=== PATIENT | female | born 1950 ===

== ENCOUNTER 2024-10-05 09:50 | Outpatient (AMB) | payer MEDICARE, SELFPAY ==
--- NOTE | 2024-10-05 10:12 | MHC.PC.OV ---
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 Intake Note: establish care Tetryl Blender Operator Required: Yes Tetryl Blender Operator Language: User Experience Designer Name: minh ([id number]) Information Interpreted: non-clinical & clinical Crematory Operator: Present Accompanied by: Daughter Is last menstrual period known: No Post menopausal: Yes Patient : No Allergies Penicillins Allergy (Severe, Verified 10/05/24 10:18) ANGIOEDEMA Medication List - Last Reconciled 10/05/24 by Andrew Weiner MD diltiazem HCl 30 mg PO DAILY donepezil 5 mg PO DAILY ferrous sulfate 325 mg PO DAILY levothyroxine (Levo-T) 50 mcg PO DAILY losartan 25 mg PO DAILY metformin 500 mg PO DAILY simvastatin 40 mg PO BEDTIME Tobacco use date assessed: 10/05/24 Fall risk assessment: 1 Fall in past year Last assessed Fall Risk: 10/05/24 Dental Screening Dental Screen Date: 10/05/24 Did you have a dental visit in the last 12 months?: No Did you have a dental problem in the last 6 months where you did not have access to dental care?: No Was dental information given to patient?: Patient has dentist HPI 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 , Shoulder surgery. SocHx: Lives w/ daughter. [facility] Social History Housing: House Patient Tobacco Use Status: Never used Tobacco e-Cigarette/Vaping Use: Never Used Second Hand Smoke Exposure: No service: No Current occupational status: retired Current occupational exposures/hazards: No Cognitive needs: No Hearing needs: No Vision needs: Yes Questionnaire Thrive Questionnaire I am a: Patient What is your living situation today?: I have a steady place to live Within the past 12 months, did the food you bought not last and you didn't have the money to get more?: Never true Within the past 12 months, did you worry whether your food would run out before you got money to buy more?: Never true Do you have trouble paying for medicines?: No Do you have trouble getting transportation to medical appointments?: I choose not to answer this question Do you have trouble paying your heating and electricity bill?: I choose not to answer this question Do you have trouble taking care of your child, family member or friend?: I choose not to answer this question Do you have trouble with day-to-day activities such as bathing, preparing meals, shopping, managing finances, etc.?: Yes Are you currently unemployed and looking for a job?: I choose not to answer this question Are you interested in more education?: No Please select the resources that you would like help with: Care for elder or disabled Currently or been in a relationship where the following occur: No concerns reported THRIVE Score: 0 AUDIT C Alcohol Use Questionnaire (AUDIT-C) 1. How often do you have a drink containing alcohol?: Never Total Score: 0 NICOLLE-7 AMB Questionnaire NICOLLE-7 Feeling nervous, anxious, or on edge: 0 = Not at all Not being able to stop or control worryin = Not at all Worrying too much about different things: 0 = Not at all Trouble relaxin = Not at all Being so restless that it is hard to sit still: 3 = Nearly every day Becoming easily annoyed or irritable: 1 = Several days Feeling afraid as if something awful might happen: 0 = Not at all Total NICOLLE-7 score (0-4 normal; 5-9 mild; 10-14 moderate; 15-21 severe): 4 Source: Developed by Drs. Bud Oliva, Janie Escalante, Oneal Pendleton and colleagues, with an educational félix from [employer]. Review of Systems Const Denies chills, Denies fatigue, Denies fever(s), Denies headache(s) and Denies weakness ENT Denies dizziness and Denies headache(s) Card Denies chest pain, Denies lightheadedness, Denies dyspnea and Denies other (Palpitations) Resp Denies cough, Denies dyspnea, Denies wheezing and Denies other ( shortness of breath) Musc Denies numbness and Denies tingling Neuro Denies dizziness, Denies headache(s), Denies numbness, Denies tingling, Denies paresthesias and Denies weakness Psych Denies anxiety and Denies depression Endo Denies fatigue Aller/Immun Denies wheezing Physical exam (Primary Care) Currently or been in a relationship where the following occur: No concerns reported Const General: no acute distress and well developed Nutritional Appearance: well nourished Orientation/consciousness: patient oriented x3 [facility] Head: Yes normocephalic and Yes atraumatic Eyes General: appearance normal, both eyes and all related structures Pupils: Equal, round and reactive pupils present EOM: EOMs intact bilaterally Resp Effort & Inspection: normal respiratory effort Auscultation: clear to auscultation bilaterally Cardio Rate: regular rate Rhythm: regular rhythm Heart sounds: S1 normal heart sound present, S2 normal heart sound present, no gallops, no murmurs and no rubs Neuro General: patient oriented x3 and No gait normal Cranial nerves: Yes Equal, round and reactive pupils present Psych Affect: normal affect Coding Level of Care Code New Pt Level 4 (45377) Diagnoses Diabetes type 2 E11.9 Alzheimers disease G30.9; F02.80 Hypertension I10 Chronic kidney disease, stage 3a N18.31 Heart failure, unspecified I50.9 Hypothyroidism E03.9 Hyperlipidemia E78.5 History of left knee replacement Z96.652 Lower extremity weakness R29.898 Laboratory exam ordered as part of routine general medical examination Z00.00 Assessment & Plan Assessment & Plan (1) Diabetes type 2: Code(s): E11.9 - Type 2 diabetes mellitus without complications Plan: A1c?today?is?4.9%?on?metformin?500?mg?daily.??She?is?rather?frail?and?her?goal?should?be?around?6.8-7.1%. Also?has?a?documented?history?of?chronic?renal?failure?and?is?on?metformin. Will?have?her?decrease?metformin?to?250?mg?daily (2) Alzheimers disease: Code(s): G30.9 - Alzheimer's disease, unspecified; F02.80 - Dementia in other diseases classified elsewhere, unspecified severity, without behavioral disturbance, psychotic disturbance, mood disturbance, and anxiety Category: Medical Plan: Patient's?prior?records?known?Alzheimer's?disease.??Her?daughter?says?she?has?never?formally?evaluated?for?this She?requests?a?referral?to?neurology?to?evaluate?dementia - referral?made (3) Hypertension: Code(s): I10 - Essential (primary) hypertension Category: Medical Plan: Blood?pressure?is?controlled.??Goal?is?less?than?40/90 Continue?current?medication (4) Chronic kidney disease, stage 3a: Code(s): N18.31 - Chronic kidney disease, stage 3a Category: Medical Plan: Check?labs As?above,?decreasing?metformin?as?her?A1c?is?rather?low?and?she?has?a?history?renal?disease (5) Heart failure, unspecified: Code(s): I50.9 - Heart failure, unspecified Category: Medical Plan: Check?BNP (6) Hypothyroidism: Code(s): E03.9 - Hypothyroidism, unspecified Category: Medical Plan: Check?thyroid?hormone?levels Will?adjust?levothyroxine?as?needed (7) Hyperlipidemia: Code(s): E78.5 - Hyperlipidemia, unspecified Category: Medical Plan: Check?lipids Continue?simvastatin (8) History of left knee replacement: Code(s): Z96.652 - Presence of left artificial knee joint Category: Surgical Plan: Stable (9) Lower extremity weakness: Code(s): R29.898 - Other symptoms and signs involving the musculoskeletal system Category: Medical Plan: Patient?has?lower?extremity?weakness?and?an?unsteady?gait Will?get?her?a?light-weight?walker She?will?also?benefit?from?physical?therapy-ordered (10) Laboratory exam ordered as part of routine general medical examination: Code(s): Z00.00 - Encounter for general adult medical examination without abnormal findings Category: Medical Plan: Check?labs Orders: Orders Comprehensive [place]. Panel Fast Today Z00.00 - Encounter for general adult medical examination without abnormal findings Microalbumin, Random (w Creat) Today I10 - Essential (primary) hypertension Free T4 (Free Thyroxine) Today E03.9 - Hypothyroidism, unspecified TSH reflex Free T4 Today Z00.00 - Encounter for general adult medical examination without abnormal findings Triiodothyronine T3 Total Today E03.9 - Hypothyroidism, unspecified XR DEXA axial skeleton Today M81.0 - Age-related osteoporosis without current pathological fracture PT Evaluation and Treatment Today R29.898 - Other symptoms and signs involving the musculoskeletal system Complete Blood Count Auto Diff Today Z00.00 - Encounter for general adult medical examination without abnormal findings Lipid Panel Today Z00.00 - Encounter for general adult medical examination without abnormal findings UA and rflx microscopic Today Z00.00 - Encounter for general adult medical examination without abnormal findings Vitamin B12 and Folate Today E53.8 - Deficiency of other specified B group vitamins MM tomosynthesis screening BI Today Z12.31 - Encounter for screening mammogram for malignant neoplasm of breast B Type Natriuretic Peptide Today I50.9 - Heart failure, unspecified Referrals Neurology Referral F03.90 - Unspecified dementia, unspecified severity, without behavioral disturbance, psychotic disturbance, mood disturbance, and anxiety Medications: New walker (Ultra-Light Rollator misc) As directed, 999 days 1 ea 0RF R26.81 - Unsteadiness on feet, R29.898 - Other symptoms and signs involving the musculoskeletal system donepezil 10 mg PO DAILY 90 days 90 tabs 2RF walker (Ultra-Light Rollator misc) As directed, 999 days 1 ea 0RF R26.81 - Unsteadiness on feet, R29.898 - Other symptoms and signs involving the musculoskeletal system
[2024-10-05 10:28] VITALS: BP 131/61; PULSE 62; RESP 16; O2SAT 98; BMI 19.7
== END 2024-10-05 11:03 | disposition home or self-care (01) ==
PROVIDERS: PCP Family Medicine; Visit Provider Family Medicine
DX: I13.0 Hypertensive heart and chronic kidney disease with heart failure and stage 1 through stage 4 chronic kidney disease, or unspecified chronic kidney disease (principal); E11.22 Type 2 diabetes mellitus with diabetic chronic kidney disease; N18.31 Chronic kidney disease, stage 3a; G30.9 Alzheimer's disease, unspecified; F02.80 Dementia in other diseases classified elsewhere, unspecified severity, without behavioral disturbance, psychotic disturbance, mood disturbance, and anxiety; I50.9 Heart failure, unspecified; E03.9 Hypothyroidism, unspecified; E78.5 Hyperlipidemia, unspecified; Z96.652 Presence of left artificial knee joint; R29.898 Other symptoms and signs involving the musculoskeletal system

== ENCOUNTER → 2024-10-05 09:50 | Outpatient (BNVA) | payer MEDICARE, SELFPAY | PROVIDERS: PCP Family Medicine; Visit Provider Family Medicine | DX: G30.9 Alzheimer's disease, unspecified (principal); F02.80 Dementia in other diseases classified elsewhere, unspecified severity, without behavioral disturbance, psychotic disturbance, mood disturbance, and anxiety; I13.0 Hypertensive heart and chronic kidney disease with heart failure and stage 1 through stage 4 chronic kidney disease, or unspecified chronic kidney disease; E11.22 Type 2 diabetes mellitus with diabetic chronic kidney disease; N18.31 Chronic kidney disease, stage 3a; I50.9 Heart failure, unspecified; E03.9 Hypothyroidism, unspecified; E78.5 Hyperlipidemia, unspecified; R29.898 Other symptoms and signs involving the musculoskeletal system; Z96.652 Presence of left artificial knee joint | CPT/HCPCS: 99202 ==

== ENCOUNTER 2024-10-21 11:11 | Outpatient (REF) | payer MEDICARE, SELFPAY | END 2024-10-21 11:12 | disposition home or self-care (01) | LOC: HO.LAB 11:11 | PROVIDERS: PCP Family Medicine; Visit Provider Psychiatry & Neurology Neurology | DX: Z13.89 Encounter for screening for other disorder (principal) ==

== ENCOUNTER 2024-10-28 14:03 | Outpatient (REF) | payer MEDICARE, SELFPAY ==
[2024-10-28 14:27] LABS: MANUAL DIFF FLAG NO
[2024-10-28 15:46] LABS: Basophils Absolute Auto 0.1 X10*3/uL (0.0-0.2); Basophils Percent Auto 0.6 % (0-2); Eosinophils Absolute Auto 0.1 X10*3/uL (0.0-0.4); Eosinophils Percent Auto 1.5 % (0-4); Hematocrit 35.9 % (37.0-47.0); Hemoglobin 12.2 g/dl (12.0-16.0); Imm Gran Abs Auto 0.01 X10*3/uL (0.00-0.03); Imm Gran Pct Auto 0.1 % (0.0-0.4); Lymphocytes Absolute Auto 2.3 X10*3/uL (1.2-4.9); Lymphocytes Percent Auto 27.9 % (20-40); Mean Corpuscular Volume 88.2 fL (80.0-98.0); Mean Platelet Volume 10.5 fL (9.4-12.3); Monocytes Absolute Auto 0.4 X10*3/uL (0.1-1.2); Monocytes Percent Auto 4.7 % (2-11); Neutrophils Absolute Auto 5.4 x10*3/uL (2.0-8.3); Neutrophils Percent Auto 65.2 % (45-73); Platelet Count 349 X10*3/uL (160-400); Red Blood Count 4.07 X10*6/uL (4.20-5.50); Red Cell Distribution Width 13.7 % (11.0-16.0); White Blood Count 8.3 X10*3/uL (4.8-10.8)
[2024-10-28 16:21] LABS: Anion Gap 12 (12-20); Blood Urea Nitrogen 25 mg/dL (9-16); Calcium 9.6 mg/dL (8.4-10.2); Carbon Dioxide 27 mmol/L (22-29); Chloride 111 mmol/L (96-108); Estimated Glomerular Filt Rate > 60; Glucose Random 91 mg/dL (60-115); Potassium 3.4 mmol/L (3.3-5.1); Sodium 147 mmol/L (135-145)
[2024-10-28 16:37] LABS: Thyroid Stimulating Hormone 1.36 uIU/mL (0.32-4.0)
[2024-10-28 16:48] LABS: Folate 4.2 ng/mL (> or = 4.0); Vitamin B12 282 pg/mL (200-900)
== END 2024-10-28 14:04 | disposition home or self-care (01) ==
LOC: HO.LAB 14:03
PROVIDERS: PCP Family Medicine; Visit Provider Psychiatry & Neurology Neurology
DX: G30.9 Alzheimer's disease, unspecified (principal)
CPT/HCPCS: 36415; 80048; 82607; 82746; 84443; 85025

== ENCOUNTER 2024-11-05 11:00 | Outpatient (AMB) | payer MEDICARE, SELFPAY ==
--- NOTE | 2024-11-05 11:10 | A.OFFPC_ITS ---
Vital Signs 11/05/24 11:21 Height 4 ft 11 in Weight 101 lb 4 oz BMI 20.4 BP 120/60 Blood Pressure Location Lt brachial Position Sitting Respiration 14 Pulse 67 Pulse Source Pulse Oximeter Pulse Oximetry (%) 97 Oxygen Delivery Method Room Air Intake Visit Reasons: CPE with f/u labs and health maint. 30 mins Intake Note: CPE lab results Category Director Required: Yes Category Director Language: Milk Tanker Driver Name: carmine [id number] Information Interpreted: non-clinical & clinical Sales Coordinator: Present Accompanied by: Daughter Is last menstrual period known: No Post menopausal: Yes Patient : No Followed by:: juan Allergies Penicillins Allergy (Severe, Verified 11/05/24 11:16) ANGIOEDEMA Tobacco use date assessed: 11/05/24 Fall risk assessment: 1 Fall in past year Last assessed Fall Risk: 11/05/24 Dental Screening Dental Screen Date: 11/05/24 Did you have a dental visit in the last 12 months?: No Did you have a dental problem in the last 6 months where you did not have access to dental care?: No Was dental information given to patient?: Patient has dentist HPI CPE with f/u labs and health maint. 30 mins HPI Details 74 y/o female presents for an extended e xam with f/u labs and health maintenance. Labs drawn 10/28/24. Reviewed labs with pt. No lipid panel to review. RBC mildly low at 4.07, Hct 35.9. Had seen Dr. Benson Neurology for progressive dementia and personality changes. She is on donepizil. Has not done physical therapy yet for LE weakness. A1c 4.8%. She is on metformin 500mg daily. HPI Comments History of Present Illness Details Documentation assistance for Andrew Weiner MD, was provided by Shahbaz Syed, Painter Helper on 11/05/2024 at 11:48 AM EST. I, Dr. Weiner, have read, observed, and verified documentation. [facility] Social History Housing: House Patient Tobacco Use Status: Never used Tobacco e-Cigarette/Vaping Use: Never Used Second Hand Smoke Exposure: No service: No Current occupational status: retired Current occupational exposures/hazards: No Cognitive needs: No Hearing needs: No Vision needs: Yes Questionnaire PHQ-9 Over the last 2 weeks, how often have you been bothered by any of the following problems? 52965 - PHQ-9 Billing: Patient declined-do not bill Source: Developed by Drs. Bud Oliva, Janie Escalante, Oneal Pendletno and colleagues, with an educational félix from [employer]. Thrive Questionnaire Date Thrive assessed: 11/05/24 I am a: Patient What is your living situation today?: I have a steady place to live Within the past 12 months, did the food you bought not last and you didn't have the money to get more?: Never true Within the past 12 months, did you worry whether your food would run out before you got money to buy more?: Never true Do you have trouble paying for medicines?: No Do you have trouble getting transportation to medical appointments?: No Do you have trouble paying your heating and electricity bill?: No Do you have trouble taking care of your child, family member or friend?: Yes Do you have trouble with day-to-day activities such as bathing, preparing meals, shopping, managing finances, etc.?: Yes Are you currently unemployed and looking for a job?: No Are you interested in more education?: No Please select the resources that you would like help with: None Currently or been in a relationship where the following occur: No concerns reported THRIVE Score: 0 AUDIT C Alcohol Use Questionnaire (AUDIT-C) 1. How often do you have a drink containing alcohol?: Never 3. How often do you have six or more drinks on one occasion?: Never Total Score: 0 Review of Systems Const Denies chills, Denies fatigue, Denies fever(s), Denies headache(s) and Denies weakness Eyes Denies change in vision ENT Denies dizziness, Denies headache(s), Denies hearing loss, Denies nasal congestion, Denies sinus pain, Denies sinus pressure and Denies sore throat Card Denies chest pain, Denies lightheadedness, Denies dyspnea and Denies other (palpitations) Resp Denies cough, Denies dyspnea and Denies wheezing GI Denies abdominal pain, Denies melena, Denies hematochezia, Denies change in bowel habits, Denies dyspepsia and Denies nausea Denies hematuria and Denies dysuria Musc Denies abnormal gait, Denies myalgias, Denies arthralgias, Denies numbness and Denies tingling Skin/Breast Denies rash, Denies unusual bruising and Denies wounds Neuro Denies abnormal gait, Denies dizziness, Denies headache(s), Denies memory loss, Denies numbness, Denies Sensory deficit (Neuro), Denies tingling and Denies weakness Psych Denies anxiety, Denies depression and Denies memory loss Endo Denies cold intolerance, Denies fatigue, Denies heat intolerance, Denies polydipsia and Denies polyuria Huber/Lymph Denies easy bleeding and Denies easy bruising Aller/Immun Denies wheezing Physical exam (Primary Care) Vital Signs: Last Vital Signs Pulse 67 11/05/24 11:21 Resp 14 11/05/24 11:21 BP 120/60 11/05/24 11:21 Pulse Ox 97 11/05/24 11:21 Oxygen Delivery Method Room Air 11/05/24 11:21 BMI result Body Mass Index 20.4 Tobacco/Smoking Status: Tobacco use Status Tobacco use date assessed 11/05/24 11/05/24 11:35 Patient Tobacco Use Status Never used Tobacco 11/05/24 11:12 e-Cigarette/Vaping Use Never Used 11/05/24 11:12 Thrive Assessment: Date of Thrive Assessment Date Thrive assessed 11/05/24 11/05/24 11:12 Currently or been in a relationship where the following occur: No concerns reported Const General: no acute distress, well developed, alert and awake Nutritional Appearance: well nourished [facility] Head: Yes normocephalic and Yes atraumatic Ears: hearing grossly normal bilaterally and TM's normal bilaterally General nose exam: Normal external nose present and Normal nares present Mouth: Normal oral and palatal mucosa present and moist mucous membranes Teeth and gingiva: dentition normal Throat: Yes posterior oropharynx normal Eyes General: appearance normal, both eyes and all related structures Pupils: Equal, round and reactive pupils present and Pupil accommodation reflex normal EOM: EOMs intact bilaterally Neck Neck: Yes normal visual inspection, Yes no lymphadenopathy and Yes trachea midline Thyroid: Thyroid normal Carotids: no bruits Lymphatic: no lymphadenopathy noted Chest Chest palpation & inspection: normal inspection of the chest Resp Effort & Inspection: normal respiratory effort Auscultation: clear to auscultation bilaterally Cardio Rate: regular rate Rhythm: regular rhythm Heart sounds: S1 normal heart sound present, S2 normal heart sound present, no gallops, no murmurs and no rubs Bruits: no abdominal aortic bruits and no carotid bruits GI Palpation (GI): No Abdominal aortic bruit present, Soft to palpation, nontender, No hepatosplenomegaly present and No Rebound tenderness present Auscultation: normal bowel sounds General: Yes no CVA tenderness Back/Spine/Pelvis Back: no CVA tenderness Cervical Spine: cervical ROM normal and No Cervical spine tenderness Thoracic/Lumbar Spine: thoraco-lumbar ROM normal, No pain with thoraco-lumbar ROM, No thoracic spinal tenderness and No lumbar spinal tenderness Skin Lesions: no lesions Rashes: no rashes Trauma: no lacerations or abrasions Wounds: no wounds Nails: normal Neuro Cranial nerves: Yes Equal, round and reactive pupils present Cognition (Neuro): normal cognition Gait exam (Neuro): gait abnormal Motor exam (neuro): 5/5 motor strength present throughout Sensory Exam: No Sensory deficit (Neuro) Deep tendon reflexes (DTR's): Right patellar reflex intensity grade: 2+ and Left patellar reflex intensity grade: 2+ Extrem General: Yes normal to inspection and No edema Psych Appearance: grossly normal Affect: normal affect Attitude: cooperative Thought process: abnormal Results AMB Hemoglobin A1c AMB Hemoglobin A1c 4.8 % Last Edit by Maria Luisa Macario CMA on 11/05/24 12:00 Results Reviewed Results Reviewed: Laboratory Last Values Hgb A1c (Clinic) 4.8 % (4.0-6.0) 11/05/24 11:53 Coding Level of Care Code Est Pt Level 4 (86102) Diagnoses Alzheimers disease G30.9; F02.80 Lower extremity weakness R29.898 Diabetes type 2 E11.9 Hypertension I10 Hyperlipidemia E78.5 Hypothyroidism E03.9 Mild anemia D64.9 Adult general medical exam Z00.00 Assessment & Plan Assessment & Plan (1) Alzheimers disease: Code(s): G30.9 - Alzheimer's disease, unspecified; F02.80 - Dementia in other diseases classified elsewhere, unspecified severity, without behavioral disturbance, psychotic disturbance, mood disturbance, and anxiety Category: Medical Plan: Alzheimer's?dementia Patient?is?mental?status?exam?is?are?rather?pronounced.??MMSE?less?than?20/30. [employer]ie[employer] 0 Patient?lives?with?daughter.??Recommended?she?reorient?patient?frequently She?is?on?donepezil?and?can?continue?this?if?she?is?having?no?adverse?effects Referred?to?nurse?navigator?to?evaluate?for?serv ices?including?greater?[place]?elder?care?and will benefit from COMMANDING OFFICER GARAGE Referred?to?[facility]?for?physical?therapy?due?to?deconditioning?from?Alzheimer's?and? she?has?an?unsteady?gait. Also?for?medication?m anagement?and?for?home?safety?evaluation. (2) Lower extremity weakness: Code(s): R29.898 - Other symptoms and signs involving the musculoskeletal system Category: Medical Plan: If?her?a?script?for?a?Rollator?walker Physical?therapy?at?home?by?[facility]?as?above (3) Diabetes type 2: Code(s): E11.9 - Type 2 diabetes mellitus without complications Plan: A1c?4.8%?on?metformin?250?mg?daily. She?is?on?no?other?medications?for?diabetes Will?continue?to?monitor No?changes?to?regimen?today. (4) Hypertension: Code(s): I10 - Essential (primary) hypertension Category: Medical Plan: Blood?pressure?is?controlled. Goal?is?less?than?40/90 Continue?current?medication (5) Hyperlipidemia: Code(s): E78.5 - Hyperlipidemia, unspecified Category: Medical Plan: History?of?hyperlipidemia. Had?ordered?lab?work?but?this?has?not?been?drawn?yet. Will?follow-up?after?she?has?her?labs?drawn (6) Hypothyroidism: Code(s): E03.9 - Hypothyroidism, unspecified Category: Medical Plan: TSH?was?within?normal?range (7) Mild anemia: Code(s): D64.9 - Anemia, unspecified Category: Medical Plan: Mild Will?monitor (8) Adult general medical exam: Code(s): Z00.00 - Encounter for general adult medical examination without abnormal findings Category: Medical Plan: 74-year-old?female?with?moderately?severe?Alzheimer's?dementia Physical?exam?today?is?unremarkable?except?deficits?in?memory?and?cognition and?some?lower?extremity?weakness?with?unsteady?gait. Orders: Orders AMB Hemoglobin A1c Today Z13.9 - Encounter for screening, unspecified AMB Hemoglobin A1c 10/05/24 Z13.9 - Encounter for screening, unspecified Referrals Nurse Navigator Referral F02.80 - Dementia in other diseases classified elsewhere, unspecified severity, without behavioral disturbance, psychotic disturbance, mood disturbance, and anxiety, G30.9 - Alzheimer's disease, unspecified [facility] Referral F02.80 - Dementia in other diseases classified elsewhere, unspecified severity, without behavioral disturbance, psychotic disturbance, mood disturbance, and anxiety, G30.9 - Alzheimer's disease, unspecified, R26.81 - Unsteadiness on feet, R29.898 - Other symptoms and signs involving the musculoskeletal system Medications: Refilled walker (Ultra-Light Rollator misc) As directed, 999 days 1 ea 0RF R26.81 - Unsteadiness on feet, R29.898 - Other symptoms and signs involving the musculoskeletal system walker (Ultra-Light Rollator misc) As directed, 999 days 1 ea 0RF R26.81 - Unsteadiness on feet, R29.898 - Other symptoms and signs involving the musculoskeletal system
[2024-11-05 11:21] VITALS: BP 120/60; PULSE 67; RESP 14; O2SAT 97; BMI 20.4
== END 2024-11-05 12:16 | disposition home or self-care (01) ==
PROVIDERS: PCP Family Medicine; Visit Provider Family Medicine
DX: G30.9 Alzheimer's disease, unspecified (principal); F02.80 Dementia in other diseases classified elsewhere, unspecified severity, without behavioral disturbance, psychotic disturbance, mood disturbance, and anxiety; R29.898 Other symptoms and signs involving the musculoskeletal system; E11.9 Type 2 diabetes mellitus without complications; I10 Essential (primary) hypertension; E78.5 Hyperlipidemia, unspecified; E03.9 Hypothyroidism, unspecified; D64.9 Anemia, unspecified; Z00.00 Encounter for general adult medical examination without abnormal findings; Z13.9 Encounter for screening, unspecified

== ENCOUNTER → 2024-11-05 11:00 | Outpatient (BNVA) | payer MEDICARE, SELFPAY | PROVIDERS: PCP Family Medicine; Visit Provider Family Medicine | DX: Z00.00 Encounter for general adult medical examination without abnormal findings (principal); G30.9 Alzheimer's disease, unspecified; F02.80 Dementia in other diseases classified elsewhere, unspecified severity, without behavioral disturbance, psychotic disturbance, mood disturbance, and anxiety; R29.898 Other symptoms and signs involving the musculoskeletal system; R26.81 Unsteadiness on feet; E11.9 Type 2 diabetes mellitus without complications; I10 Essential (primary) hypertension; E78.5 Hyperlipidemia, unspecified; E03.9 Hypothyroidism, unspecified; D64.9 Anemia, unspecified | CPT/HCPCS: 83036; 99212 ==

== ENCOUNTER 2024-11-11 14:02 | Outpatient (REF) | payer MEDICARE, SELFPAY ==
--- NOTE | ~2024-11-11 | CT_ITS ---
CLINICAL HISTORY: ALZHEIMERS DEMENTIA CT head without contrast Comparison: None Findings: No intra-axial mass, midline shift, hydrocephalus, or acute hemorrhage. There is moderate diffuse atrophy and white matter change likely related to chronic microvascular ischemia. There is no sinus or mastoid fluid. The orbits are within normal limits. No skull fracture. IMPRESSION: 1. No acute intracranial findings This document has been electronically signed by: Ervin Rodriguez MD on 11/13/2024 07:01:21
== END 2024-11-11 14:03 | disposition home or self-care (01) ==
LOC: HO.CT 14:02
PROVIDERS: PCP Family Medicine; Visit Provider Family Medicine
DX: G30.9 Alzheimer's disease, unspecified (principal); F02.80 Dementia in other diseases classified elsewhere, unspecified severity, without behavioral disturbance, psychotic disturbance, mood disturbance, and anxiety
CPT/HCPCS: 70450

== ENCOUNTER → 2024-11-11 14:07 | Outpatient (BNV) | payer MEDICARE, SELFPAY | PROVIDERS: PCP Family Medicine; Visit Provider Specialist | DX: G30.9 Alzheimer's disease, unspecified (principal); F02.80 Dementia in other diseases classified elsewhere, unspecified severity, without behavioral disturbance, psychotic disturbance, mood disturbance, and anxiety | CPT/HCPCS: 70450 ==

== ENCOUNTER 2024-12-15 12:49 | Outpatient (REF) | payer MEDICARE, SELFPAY ==
--- NOTE | ~2024-12-15 | MM_ITS ---
EXAMINATION: DXA BONE DENSITY AXIAL HISTORY: Estrogen deficiency TECHNIQUE: Nomi Dual energy absorptiometry (DEXA) of the lumbar spine, total left hip, and femoral neck was performed. COMPARISON: There are no prior studies for comparison. FINDINGS: The bone mineral density of the lumbar spine is 1.075 with a T-score of -0.9, and a Z-score of 1.5. The bone mineral density of the left total hip is 0.651 with a T-score of -2.8, and a Z-score of -0.6. The bone mineral density of the left femoral neck is 0.593 with a T-score of -3.2, and a Z-score of -0.8. MM/XR DEXA axial skeleton IMPRESSION: Based on bone mineral density, and according to World Health Organization (WHO) criteria, the diagnosis is consistent with osteoporosis. All bone density values are in grams per centimeter squared (g/cm2). Statistically, 68% of repeat scans fall within 1 SD (+/- 0.010 g/cm2 for AP spine L1-L4) and 1 SD (+/- 0.012 g/cm2 for femur total) FRAX is a trademark of the [employer]'s [employer] Metabolic Bone Disease, a World Health Organization (WHO) Collaborating Center. Electronically signed by: Bud Pineda MD 12/15/2024 02:37 PM [facility] [place]
--- OUTSIDE RECORDS SUMMARY | 2024-12-15 14:13 | XMS_ITS | Clinical Summary ---
Author Organization [employer] Address [address] [place] [address] Care Team Providers Care Necktie Turner Name Role Phone Unavailable Primary Care Provider Unavailabl e Social History Tobacco Use Types Packs/Day Years Used Date Smoking Tobacco: Never Assessed Comments Unknown Sex and Gender Information Value Date Recorded Sex Assigned at Not on file Legal Sex Female 2:22 PM EDT Gender Identity Not on file Sexual Orientation Not on file Plan of Treatment Health Maintenance Due Date Last Done Comments Depression Screening 1950 SDOH Screening 1950 Alcohol/Substance Use Screening 1960 Tobacco Screening 1960 Hepatitis C Screening 1966 DTaP/Tdap/Td Vaccines (1 - Tdap) 1967 Pneumococcal Vaccine: 50+ Ye ars (1 of 1 - PCV) 1998 Zoster Vaccines (1 of 2) 1998 RSV Patients and Pa tients Aged 60 years or older (1 - 1-dose 75+ series) 2023 COVID-19 Vaccine ( - 2023-2 5 season) 2024 Influenza Vaccine (#1) 2024 HIB Vaccines Aged Out No longer eligi ble based on patient's age to complete this topic HPV Vaccines Aged Out No longer eligi ble based on patient's age to complete this topic Hepatitis A Vaccines Aged Out No long er eligible based on patient's age to complete this topic Hepatitis B Vaccines Aged Out No long er eligible based on patient's age to complete this topic IPV Vaccines Aged Out No longer eligi ble based on patient's age to complete this topic Meningococcal Vaccine Aged Out No rosamaria bina eligible based on patient's age to complete this topic RSV under 20 months Aged Out No longe r eligible based on patient's age to complete this topic Rotavirus Vaccines Aged Out No longer eligible based on patient's age to complete this topic Insurance [place] [phone]
== END 2024-12-15 12:50 | disposition home or self-care (01) ==
LOC: HO.MAMMO 12:49
PROVIDERS: PCP Family Medicine; Visit Provider Family Medicine
DX: Z12.31 Encounter for screening mammogram for malignant neoplasm of breast (principal); M81.0 Age-related osteoporosis without current pathological fracture
CPT/HCPCS: 77063; 77067; 77080

== ENCOUNTER → 2024-12-15 12:59 | Outpatient (BNV) | payer MEDICARE, SELFPAY | PROVIDERS: PCP Family Medicine; Visit Provider Radiology Diagnostic Radiology | DX: M81.0 Age-related osteoporosis without current pathological fracture (principal) | CPT/HCPCS: 77080 ==

== ENCOUNTER 2025-08-10 09:44 | Emergency (ER) | payer MEDICARE, MEDICAID, SELFPAY ==
--- NOTE | ~2025-08-10 | CT_ITS ---
CLINICAL HISTORY: L labia majora with areas of necrosis R O gangrene CT abdomen and pelvis with contrast Comparison: None provided Findings: LIMITED CHEST: Partially visualized 5 mm nodule at the left base. Follow-up per Fleischner criteria. LIVER: No focal liver lesion. BILIARY: No gallbladder wall thickening, radiopaque stone, or ductal dilatation. PANCREAS: No mass or ductal dilatation. SPLEEN: No splenomegaly. KIDNEYS: Left-sided nephrolithiasis, largest measuring 4 mm in the left lower pole. No hydronephrosis. Small hypoattenuating lesions, too small to characterize however may represent cysts. ADRENALS: No nodule. VASCULAR: No aneurysm. RETROPERITONEUM: No lymphadenopathy or mass. BOWEL/MESENTERY: No evidence of obstruction. No free fluid or air. Moderate colonic stool burden. ABDOMINAL WALL: No mass or significant abnormality. URINARY BLADDER: No focal wall thickening. PELVIC NODES: No pelvic lymphadenopathy. PELVIC ORGANS: Hysterectomy. There is a 7.9 x 2.9 x 7.1 cm enhancing fluid collection along the left labia majora extending into the inferior aspect of the vaginal canal. There is small internal soft tissue gas. BONES: No acute fracture. OTHER: Asymmetric atrophy of the right hip musculature. IMPRESSION: Large soft tissue abscess of the left labia majora extending into the inferior aspect of the vaginal canal. Internal pockets of gas, suspicious for gangrenous process. This document has been electronically signed by: Ramila Antony MD on 08/10/2025 19:23:48
[2025-08-10 09:49] VITALS: BP 125/58; PULSE 81; RESP 16; TEMP 36.7; O2SAT 97; BMI 17.8
[2025-08-10 12:34] VITALS: BP 116/40; PULSE 74; RESP 18; O2SAT 98
--- NOTE | 2025-08-10 12:54 | ED.FEMALEGU ---
HPI - Female Genitourinary General Chief complaint: Urogenital-Female Stated complaint: Ovarian cyst? Time Seen by Provider: 08/10/25 12:39 Source: family (Daughter at bedside), RN notes reviewed, old records reviewed and assessment counselor Mode of arrival: ambulatory Limitations: language barrier ([place]ese-speaking) and altered mental status (Severe dementia) History of Present Illness ED Provider: JEAN CLAUDE Aaron HPI Narrative: 75 year old canadian speaking female accompanied by canadian speaking daughter, with medical history of HTN, HLD, hypothyroidism, CKD stage III, Alzheimer's disease, presents to the ED with her daughter who is her caregiver due to concerns of a growth on the labia majora. Daughter states she just noticed this growth within the last week, with some serosanguineous fluid on the beds sheets yesterday making the daughter more concerned. Daughter denies any fever, or recent illnesses. Daughter is unsure of how long this area has been necrotic. Related Data Previous Rx's ?Medication ?Instructions ?Recorded donepezil 10 mg tablet 10 mg PO DAILY 90 days #90 tabs 10/05/24 walker (Ultra-Light Rollator misc) #1 ea 11/05/24 diltiazem HCl 30 mg tablet 30 mg PO DAILY 90 days #90 tabs 12/05/24 ferrous sulfate 325 mg (65 mg 325 mg PO DAILY 90 days #90 tabs 12/05/24 iron) tablet levothyroxine 50 mcg tablet 50 mcg PO DAILY 90 days #90 tabs 12/05/24 (Levo-T) losartan 25 mg tablet 25 mg PO DAILY 90 days #90 tabs 12/05/24 metformin 500 mg tablet 500 mg PO DAILY 90 days #90 tabs 12/05/24 atorvastatin 40 mg tablet 40 mg PO DAILY 90 days #90 tabs 12/16/24 Allergies Allergy/AdvReac Type Severity Reaction Status Date / Time Penicillins Allergy Severe ANGIOEDEMA Verified 08/10/25 09:55 Review of Systems Review of Systems: CONST: Negative for fever, body aches and chills. HENT: Negative for neck pain/stiffness, headache, congestion, sore throat, swelling. EYES: Negative for discharge/pain or vision changes. RESP: Negative for cough/hemoptysis and shortness of breath. CV: Negative chest pain, difficulty breathing, palpitations. ABD: Negative pain, nausea, vomiting. : Negative increase frequency, dysuria, blood in urine or stool. POS hardened lesion of L labia majora MUSC: Negative for muscle aches, edema. SKIN: Negative rash, lesions/sores. NEURO: Negative headache, dizziness, weakness. Yes all other systems are reviewed and are negative [facility] Social History Social History Housing: House Patient Tobacco Use Status: Never used Tobacco e-Cigarette/Vaping Use: Never Used Second Hand Smoke Exposure: No service: No Current occupational status: retired Current occupational exposures/hazards: No Cognitive needs: No Hearing needs: No Vision needs: Yes Physical Exam Vital Signs: Vital Signs: Last Vital Signs Temp 97.6 F 08/11/25 01:04 Pulse 67 08/11/25 01:04 Resp 14 08/11/25 01:04 BP 117/43 L 08/11/25 01:04 Pulse Ox 99 08/11/25 01:04 O2 Del Method Room Air 08/11/25 01:04 BMI result Body Mass Index 17.8 GENERAL APPEARANCE: ?AxO to self only no acute distress. HEENT: ?NC, AT. MMM. EOMI, clear conjunctiva, oropharynx clear. NECK: ?Supple without lymphadenopathy.? No stiffness or restricted ROM. HEART:? Normal rate and regular rhythm, normal S1/S2, no m/r/g LUNGS:? CTAB, moving air well. No crackles or wheezes are heard. ABDOMEN: ?Soft, nontender, nondistended : L labia majora is indurated, with erythema and edema, labia minora with areas of necrotic tissue and purulence BACK: No CVAT, no obvious deformity. EXTREMITIES: ?Without cyanosis, clubbing or edema. NEUROLOGICAL: ?Grossly nonfocal. Alert and oriented, moving all 4 extremities. Skin: ?Warm and dry without any rash. Medications Administered Discontinued Medications Generic Name Dose Route Start Last Admin Trade Name Freq PRN Reason Stop Dose Admin Cefepime HCl 2 gm in 50 mls @ 100 mls/hr 08/10/25 14:38 08/10/25 15:56 Maxipime IV 08/10/25 15:07 Infused ONCE ONE Infusion Metronidazole 500 mg in 100 mls @ 100 mls/hr 08/10/25 14:38 08/10/25 17:15 Flagyl IV 08/10/25 15:37 Infused ONCE ONE Infusion Lactated Ringer's 1,000 mls @ 999 mls/hr 08/10/25 16:30 08/10/25 18:21 Lr IV 08/10/25 17:30 Infused .Q1H1M ONE Infusion Clindamycin Phosphate 600 mg in 50 mls @ 100 mls/hr 08/10/25 19:47 08/10/25 23:49 Cleocin IV 08/10/25 20:16 Infused ONCE ONE Infusion Cefepime HCl 2 gm in 50 mls @ 100 mls/hr 08/10/25 22:04 08/10/25 23:49 Maxipime IV 08/10/25 22:33 Infused ONCE ONE Infusion Iohexol 100 ml 08/10/25 18:35 08/10/25 18:36 Iohexol 350 Mg/Ml 100 Ml Infus..Btl IV 08/10/25 18:36 85 ml ONCE ONE Administration Medical Decision Making Medical Decision Making MDM Narrative: 75 year old canadian speaking female accompanied by canadian speaking daughter, with medical history of HTN, HLD, hypothyroidism, CKD stage III, Alzheimer's disease, presents to the ED with her daughter who is her caregiver due to concerns of a growth on the labia majora. Daughter states she just noticed this growth within the last week, with some serosanguineous fluid on the beds sheets yesterday making the daughter more concerned. VS on initial observation-BP 125/58, pulse rate of 81, respiratory rate of 16, afebrile with oral temp of 98?, O2 saturation 97% on room air. Physical exam reveals L labia majora is indurated, with erythema and edema, labia minora with areas of necrotic tissue and purulence. Plan: labs, UA, CT abdomen pelvis Labs reveal leukocytosis of 11.5 with a left shift of 83.2, normocytic anemia with a hemoglobin of 8.9, and hematocrit of 27.4, lactic acid WNL at 1.3, no electrolyte abnormality. UA reveals 1+ urine protein, 3+ urine blood, 3+ leukocyte esterase, >20 RBC, >50WBC, 6-10 Squamous epithelial cells, 4+ bacteria, 6-10 hyaline casts. Patient medicated with IV fluids, IV cefepime and metronidazole due to penicillin allergy (zosyn was considered). Awaiting CT abdomen pelvis for further evaluation as there is no OB coverage in house today and patient will likely need to be transfered for care as this lesion looks to be possibly cancerous. Patient has been signed out to my colleague Dr. Rodriguez who will resume care of the patient. Patient and her daughter are aware and in agreement of the plan. Time: 19:49 Date: 08/10/25 attending note: Timmy Rodriguez MD 75 year old canadian speaking female accompanied by canadian speaking daughter, with medical history of HTN, HLD, hypothyroidism, CKD stage III, Alzheimer's disease, presents to the ED with her daughter who is her caregiver due to concerns of a growth on the labia majora 1st noted 1 week prior. The daughter states that yesterday she noticed a ?hard crust at the lip of the vagina that looked discolored/dark?. According to to the daughter, the patient was at her baseline and had no complaints. Patient did not have any fever, chills, nausea, vomiting or diarrhea. Physical exam: The left labia majora is swollen, erythematous, tender to touch, there is an area of necrosis on the inner surface, there is a foul odor to the area Medical decision making: My independent interpretation patient's laboratory evaluation is as follows: WBC was elevated 11,500 with 83 neutrophils 9 lymphocytes. Normocytic anemia with an H&H of 8.9 and 27.4 with a normal platelet count of 282,000. BUN was elevated 27 with a normal creatinine of 0.84. Lactic acid was normal 1.3. Urinalysis was positive for protein, blood, leukocyte esterase. Microscopic revealed greater than 20 RBCs, greater than 20 WBCs and 4+ bacteria. I was concerned that the patient may have a malignancy versus cellulitis with necrosis. Since we did not have OBGYN coverage therefore the patient needed to be transferred. Physician apartment assistant manager Luna Aaron present the patient to [facility] transfer line, however they were closed due to lack of capacity. Patient's case was presented to the [facility] transfer line and they requested CT of the abdomen pelvis to further evaluate the lesion/cellulitis. At the end of the physician's apartment assistant manager shift, I took over further management of the patient's care. CT scan radiology impression was as follows: Large soft tissue abscess of the left labia majora extending into the inferior aspect of the vaginal canal. Internal pockets of gas, suspicious . The patient was treated earlier with cefepime 2 g IV and metronidazole 500 mg IV. Given the finding of pockets of gas, I ordered clindamycin 600 mg IV. I did discuss the patient's presentation with the gynecology oncologist, who was covering at [facility] and she felt that the patient should be an ED to ED transfer and she will consult on the patient. The accepting ED physician is Dr. Lawler. The patient did receive a dose of cefepime 2 g proximally 8 hours prior therefore I ordered a 2nd dose of cefepime 2 g IV. The patient will be transferred by [facility] ambulance. The patient's daughter is aware of the transfer and agrees with the transfer. I, Dr. Timmy Rodriguez, personally evaluated the patient. I reviewed the physician apartment assistant manager, Luna Aaron's documentation and I was available to supervise the management of the patient. I agree with her treatment and plan. My note reflects my personal findings on my history and exam. Differential Diagnosis Differential Diagnoses: The differential diagnosis associated with the presentation includes Mony's gangrene Necrotizing fasciitis Cancerous lesion Electrolyte abnormality Admission/Observation Consideration of admission/observation: Escalation of care including admission/observation considered Lab Data MDM Lab Attestation statement: I reviewed the patient's lab results. 08/10/25 14:42 08/10/25 14:42 Labs: Lab Results 08/10/25 08/10/25 Range/Units 14:42 14:45 WBC 11.5 H (4.8-10.8) X10*3/uL RBC 3.15 L D (4.20-5.50) X10*6/uL Hgb 8.9 L D (12.0-16.0) g/dl Hct 27.4 L D (37.0-47.0) % MCV 87.0 (80.0-98.0) fL MCH 28.3 (27.0-33.0) pg MCHC 32.5 (31.0-35.0) g/dl RDW 13.4 (11.0-16.0) % Plt Count 282 (160-400) X10*3/uL MPV 9.5 (9.4-12.3) fL Immature Gran % (Auto) 0.3 (0.0-0.4) % Neut % (Auto) 83.2 H (45-73) % Lymph % (Auto) 9.5 L (20-40) % [place] % (Auto) 4.6 (2-11) % Eos % (Auto) 2.1 (0-4) % Baso % (Auto) 0.3 (0-2) % Lymph # (Auto) 1.1 L (1.2-4.9) X10*3/uL [place] # (Auto) 0.5 (0.1-1.2) X10*3/uL Eos # (Auto) 0.2 (0.0-0.4) X10*3/uL Baso # (Auto) 0.0 (0.0-0.2) X10*3/uL Abs Immat Gran (auto) 0.04 H (0.00-0.03) X10*3/uL Absolute Neuts (auto) 9.6 H (2.0-8.3) x10*3/uL Absolute Nucleated RBC 0.000 (0.0-0.012) X10*3/uL Nucleated RBC % (auto) 0.0 (0.0-0.2) /100WBC Sodium 144 (135-145) mmol/L Potassium 3.9 (3.3-5.1) mmol/L Chloride 110 H (96-108) mmol/L Carbon Dioxide 28 (22-29) mmol/L Anion Gap 10 L (12-20) BUN 27 H (9-16) mg/dL Creatinine 0.84 (0.5-1.4) mg/dL Estim Creat Clear Calc 35.4 Estimated GFR > 60 Random Glucose 101 (60-115) mg/dL Lactic Acid 1.3 (0.5-2.0) mmol/L Calcium 8.6 D (8.4-10.2) mg/dL Magnesium 1.9 (1.6-2.6) mg/dL Total Bilirubin 0.4 (0.0-1.0) mg/dL AST 20 (5-31) U/L ALT 9 (0-31) U/L Alkaline Phosphatase 83 (39-117) U/L Total Protein 6.5 (6.5-8.0) g/dL Albumin 3.4 L (3.5-5.0) g/dL Urine Color Yellow Urine Appearance Turbid Urine pH 7.5 (5.0-9.0) Ur Specific [place] 1.025 (1.005-1.025) Urine Protein 30 (1+) H (Neg-Trace) mg/dL Urine Glucose (UA) Negative (Negative) mg/dL Urine Ketones Trace (Negative) mg/dL Urine Blood Large (3+) H (Negative) Urine Nitrite Negative (Negative) Ur Leukocyte Esterase Large (3+) H (Negative) Urine RBC >20 H (0-2) /HPF Urine WBC >50 H (0-5) /HPF Ur Squamous Epith Cells 6-10 (0-2) /HPF Urine Bacteria 4+ (None Seen) Hyaline Casts 6-10 (0-2) /LPF Independent Interpretation I performed an independent interpretation of an: CT Scan Interpretation: CT abdomen and pelvis with contrast Comparison: None provided Findings: LIMITED CHEST: Partially visualized 5 mm nodule at the left base. Follow-up per Fleischner criteria. LIVER: No focal liver lesion. BILIARY: No gallbladder wall thickening, radiopaque stone, or ductal dilatation. PANCREAS: No mass or ductal dilatation. SPLEEN: No splenomegaly. KIDNEYS: Left-sided nephrolithiasis, largest measuring 4 mm in the left lower pole. No hydronephrosis. Small hypoattenuating lesions, too small to characterize however may represent cysts. ADRENALS: No nodule. VASCULAR: No aneurysm. RETROPERITONEUM: No lymphadenopathy or mass. BOWEL/MESENTERY: No evidence of obstruction. No free fluid or air. Moderate colonic stool burden. ABDOMINAL WALL: No mass or significant abnormality. URINARY BLADDER: No focal wall thickening. PELVIC NODES: No pelvic lymphadenopathy. PELVIC ORGANS: Hysterectomy. There is a 7.9 x 2.9 x 7.1 cm enhancing fluid collection along the left labia majora extending into the inferior aspect of the vaginal canal. There is small internal soft tissue gas. BONES: No acute fracture. OTHER: Asymmetric atrophy of the right hip musculature. IMPRESSION: Large soft tissue abscess of the left labia majora extending into the inferior aspect of the vaginal canal. Internal pockets of gas, suspicious for gangrenous process. This document has been electronically signed by: Ramila Antony MD on 08/10/2025 19:23:48 Radiology Impression Discussion of test interpretation with radiology: I have reviewed the radiologist's reading. Radiologist Impression: CT abdomen and pelvis Independent Historian Clinical information obtained from an independent historian. History obtained from or confirmed by: Other (Daughter at bedside corroborating history) External Record Review External record reviewed: Inpatient record, Office record and Outpatient record Chronic Conditions Patient?s care impacted by: Diabetes, Hypertension and Other (CKD stage 3, CHF, Alzheimer's) Critical Care Time Critical Care Time Critical Care Time: Yes Total Critical Care Time: 45 Attestation: Critical Care: The patient was critically ill with a high probability of imminent or life threatening deterioration. I spent greater than 30 minutes of discontinuous time evaluating the patient,delivering critical care at the bedside, discussing and evaluating pertinent data with consultants. Critical care time does not include time spent performing separately billable procedures or teaching. Total time spent performing critical care was 45 minutes. Discharge Plan Discharge Clinical Impression: Cellulitis of labia majora, Abscess of labia, Gas gangrene Patient Disposition: [facility] Transfer Details: [facility], ED to ED transfer, accepting attending, Dr. Lawler Prescriptions: No Action diltiazem HCl 30 mg tablet 30 mg PO DAILY 90 Days Qty: 90 3RF ferrous sulfate 325 mg (65 mg iron) tablet 325 mg PO DAILY 90 Days Qty: 90 3RF levothyroxine [Levo-T] 50 mcg tablet 50 mcg PO DAILY 90 Days Qty: 90 4RF losartan 25 mg tablet 25 mg PO DAILY 90 Days Qty: 90 4RF metformin 500 mg tablet 500 mg PO DAILY 90 Days Qty: 90 3RF atorvastatin 40 mg tablet 40 mg PO DAILY 90 Days Qty: 90 3RF (DME) Ultra-Light Rollator Misc See Rx Instructions .Route Qty: 1 0RF Rx Instructions: As directed, 999 days donepezil 10 mg tablet 10 mg PO DAILY 90 Days Qty: 90 2RF Discharge Date/Time: 08/11/25 01:30 Print Language: [place]ese
[2025-08-10 14:57] LABS: MANUAL DIFF FLAG NO
[2025-08-10 15:05] LABS: Hematocrit 27.4 % (37.0-47.0); Hemoglobin 8.9 g/dl (12.0-16.0); Imm Gran Abs Auto 0.04 X10*3/uL (0.00-0.03); Imm Gran Pct Auto 0.3 % (0.0-0.4); Lymphocytes Absolute Auto 1.1 X10*3/uL (1.2-4.9); Mean Corpuscular HGB Conc 32.5 g/dl (31.0-35.0); Mean Corpuscular Hemoglobin 28.3 pg (27.0-33.0); Mean Corpuscular Volume 87.0 fL (80.0-98.0); NRBC Abs Auto 0.000 X10*3/uL (0.0-0.012); NRBC Pct Auto 0.0 /100WBC (0.0-0.2); Platelet Count 282 X10*3/uL (160-400); Red Blood Count 3.15 X10*6/uL (4.20-5.50); White Blood Count 11.5 X10*3/uL (4.8-10.8)
[2025-08-10 15:08] LABS: Appearance Urine Turbid; Glucose Urine UA Negative (Negative); PH 7.5 (5.0-9.0); Specific Gravity - Urine 1.025 (1.005-1.025); UMIC TRIGGER UACC YES
[2025-08-10 15:22] LABS: UACC Culture Trigger YES
[2025-08-10] MEDS: cefEPime HCl/D5W 2 GM/50 ML PIGGYBACK IV ×2 (15:26→23:17)
[2025-08-10] MEDS: metroNIDAZOLE/NS 500 MG/100 ML PIGGYBACK 100 MG IV (15:49)
[2025-08-10 15:56] VITALS: BP 100/40; PULSE 66; RESP 18; TEMP 36.2; O2SAT 100
[2025-08-10 16:10] LABS: Alanine Aminotransferase 9 U/L (0-31); Albumin Level 3.4 g/dL (3.5-5.0); Alkaline Phosphatase 83 U/L (39-117); Anion Gap 10 (12-20); Aspartate Amino Transferase 20 U/L (5-31); Blood Urea Nitrogen 27 mg/dL (9-16); Calcium 8.6 mg/dL (8.4-10.2); Carbon Dioxide 28 mmol/L (22-29); Chloride 110 mmol/L (96-108); Creatinine Clr Calc Pharmacy 35.4; Estimated Glomerular Filt Rate > 60; Magnesium 1.9 mg/dL (1.6-2.6); Potassium 3.9 mmol/L (3.3-5.1); Sodium 144 mmol/L (135-145); Total Protein 6.5 g/dL (6.5-8.0)
[2025-08-10] MEDS: Lactated Ringers 1,000 ML 999 ML IV (17:16)
[2025-08-10] MEDS: iohexoL 350 MG/ML 100 ML INFUS..BTL IV (18:36)
[2025-08-10 20:28] VITALS: BP 116/47; PULSE 72; RESP 14; TEMP 36.9; O2SAT 96
--- NOTE | 2025-08-10 23:11 | PC.NURSE ---
PT incontinent of urine. TW assisted pt to commode, pericare provided and full bedding and gown changed. Plan of care ongoing
--- NOTE | 2025-08-10 23:12 | PC.NURSE ---
TW attempted two calls to to [facility] for ED to ED RN-RN report. Answering messaged stated intercept unavailable and call disconnected will continue to attempt to reach RN.
[2025-08-11 01:04] VITALS: BP 117/43; PULSE 67; RESP 14; TEMP 36.4; O2SAT 99
== END 2025-08-11 01:30 | disposition short-term general hospital (02) ==
PROVIDERS: Emergency Provider Emergency Medicine; PCP Family Medicine
DX: N76.2 Acute vulvitis (principal); N76.4 Abscess of vulva; A48.0 Gas gangrene; I12.9 Hypertensive chronic kidney disease with stage 1 through stage 4 chronic kidney disease, or unspecified chronic kidney disease; R11.0 Nausea; N18.30 Chronic kidney disease, stage 3 unspecified; G30.9 Alzheimer's disease, unspecified; F02.80 Dementia in other diseases classified elsewhere, unspecified severity, without behavioral disturbance, psychotic disturbance, mood disturbance, and anxiety; Z79.899 Other long term (current) drug therapy
CPT/HCPCS: 36415; 74177; 80053; 81001; 81003; 83605; 83735; 85025; 87040; 87086; 87088; 87147; 87186; 96361; 96365; 96367; 96375; 99284; 99285; J0692; J0736; J1836; J7120; Q9967

== ENCOUNTER → 2025-08-10 16:34 | Outpatient (BNV) | payer MEDICARE, MEDICAID, SELFPAY | PROVIDERS: Emergency Provider Emergency Medicine Emergency Medical Services; PCP Family Medicine; Visit Provider Student in an Organized Health Care Education/Training Program | DX: N76.4 Abscess of vulva (principal) | CPT/HCPCS: 74177 ==

== ENCOUNTER 2025-09-07 10:20 | Outpatient (AMB) | payer MEDICARE, MEDICAID, SELFPAY ==
--- NOTE | 2025-09-07 11:08 | MHC.PC.OV ---
Vital Signs 09/07/25 11:20 Height 4 ft 11 in BP 90/50 L Blood Pressure Location Rt brachial Position Sitting Respiration 12 Pulse 100 Pulse Source Pulse Oximeter Temp 98.1 F Temp Source Oral Pulse Oximetry (%) 98 Oxygen Delivery Method Room Air Intake Visit Reasons: abscess/reschedule from 09/01 Intake Note: patient is scheduled to see pcp for a mass on her vulva. patient daughter states it is painful sometimes. patient needs med refill for iron supplements. Ladle Cleaner Required: Yes Ladle Cleaner Language: Inker And Opa[employer] Name: charles [id number] Information Interpreted: clinical only On Site Soil Evaluator: Present Accompanied by: Daughter Allergies Penicillins Allergy (Severe, Verified 09/07/25 11:18) ANGIOEDEMA Medication List - Last Reconciled 09/07/25 by Andrew Weiner MD atorvastatin 40 mg PO DAILY 90 days diltiazem HCl 30 mg PO DAILY 90 days donepezil 10 mg PO DAILY 90 days ferrous sulfate 325 mg PO DAILY 90 days levothyroxine (Levo-T) 50 mcg PO DAILY 90 days losartan 12.5 mg (1/2 x 25 mg) PO DAILY 90 days metformin 500 mg PO DAILY 90 days walker (Ultra-Light Rollator misc) As directed, 999 days Tobacco use date assessed: 11/05/24 Dental Screening Dental Screen Date: 11/05/24 HPI abscess/reschedule from 09/01 HPI Details Pt presented to [facility] ED with growth on labia and labial pain. Labs showed leukocytosis. Patient medicated with IV fluids, IV cefepime and metronidazole due to penicillin allergy. CT Scan showed: Large soft tissue abscess of the left labia majora extending into the inferior aspect of the vaginal canal. Internal pockets of gas, suspicious . The patient was treated earlier with cefepime 2 g IV and metronidazole 500 mg IV. Given the finding of pockets of gas, she was given clindamycin 600 mg IV. [facility] consult was obtained. Per rotor balancer specialist, this did not represent an abscess but unfortunately represents a malignancy. No surgical intervention or incision and drainage was recommended at that time. Plan was to arrange for referral to [email or web address] to discuss options. Blood pressure today low at 90/50, 100p. She is on losartan 12.5mg daily, diltiazem 30mg daily. [facility] Social History (Reviewed 11/05/24 @ 11:17 by JASMYNE Aguilar Housing: House Patient Tobacco Use Status: Never used Tobacco e-Cigarette/Vaping Use: Never Used Second Hand Smoke Exposure: No service: No Current occupational status: retired Current occupational exposures/hazards: No Cognitive needs: No Hearing needs: No Vision needs: Yes Questionnaire PHQ-9 Over the last 2 weeks, how often have you been bothered by any of the following problems? 1. Little interest or pleasure in doing things: nearly every day 2. Feeling down, depressed, or hopeless: not at all 3. Trouble falling or staying asleep, or sleeping too much: not at all 4. Feeling tired or having little energy: nearly every day 5. Poor appetite or overeating: not at all 6. Feeling bad about yourself - or that you are a failure or have let yourself or your family down: not at all 7. Trouble concentrating on things, such as reading the newspaper or watching television: nearly every day 8. Moving or speaking so slowly that other people could have noticed. Or the opposite - being so fidgety or restless that you have been moving around a lot more than usual: nearly every day 9. Thoughts that you would be better off or of hurting yourself in some way: not at all Total score: 12 Source: Developed by Drs. Bud Oliva, Janie Escalante, Oneal Pendleton and colleagues, with an educational félix from [employer]. Thrive Questionnaire Date Thrive assessed: 11/05/24 I am a: Patient What is your living situation today?: I have a steady place to live Within the past 12 months, did the food you bought not last and you didn't have the money to get more?: I choose not to answer this question Within the past 12 months, did you worry whether your food would run out before you got money to buy more?: I choose not to answer this question Do you have trouble paying for medicines?: I choose not to answer this question Do you have trouble getting transportation to medical appointments?: I choose not to answer this question Do you have trouble paying your heating and electricity bill?: I choose not to answer this question Do you have trouble taking care of your child, family member or friend?: I choose not to answer this question Do you have trouble with day-to-day activities such as bathing, preparing meals, shopping, managing finances, etc.?: Yes Are you currently unemployed and looking for a job?: I choose not to answer this question Are you interested in more education?: I choose not to answer this question Please select the resources that you would like help with: Care for elder or disabled Currently or been in a relationship where the following occur: No concerns reported THRIVE Score: 0 AUDIT C Alcohol Use Questionnaire (AUDIT-C) 1. How often do you have a drink containing alcohol?: Never Total Score: 0 NICOLLE-7 AMB Questionnaire NICOLLE-7 Feeling nervous, anxious, or on edge: 0 = Not at all Not being able to stop or control worryin = Not at all Worrying too much about different things: 0 = Not at all Trouble relaxin = Several days Being so restless that it is hard to sit still: 0 = Not at all Becoming easily annoyed or irritable: 0 = Not at all Feeling afraid as if something awful might happen: 0 = Not at all Total NICOLLE-7 score (0-4 normal; 5-9 mild; 10-14 moderate; 15-21 severe): 1 Source: Developed by Drs. Bud Oliva, Janie Escalante, Oneal Pendleton and colleagues, with an educational félix from [employer]. Review of Systems Const Denies chills, Denies fatigue, Denies fever(s), Denies headache(s) and Denies weakness ENT Denies dizziness and Denies headache(s) Card Denies dyspnea Resp Denies cough, Denies dyspnea, Denies wheezing and Denies other (shortness of breath) Musc Denies numbness and Denies tingling Neuro Denies dizziness, Denies headache(s), Denies numbness, Denies tingling and Denies weakness Psych Denies anxiety and Denies depression Endo Denies fatigue Aller/Immun Denies wheezing Physical exam (Primary Care) Vital Signs: Last Vital Signs Temp 98.1 F 09/07/25 11:20 Pulse 100 09/07/25 11:20 Resp 12 09/07/25 11:20 BP 90/50 L 09/07/25 11:20 Pulse Ox 98 09/07/25 11:20 Oxygen Delivery Method Room Air 09/07/25 11:20 Tobacco/Smoking Status: Tobacco use Status Tobacco use date assessed 11/05/24 09/07/25 11:10 Patient Tobacco Use Status Never used Tobacco 09/07/25 11:10 e-Cigarette/Vaping Use Never Used 09/07/25 11:10 PHQ-9: PHQ-9 Score PHQ-9: Total score 12 09/07/25 11:42 Thrive Assessment: Date of Thrive Assessment Date Thrive assessed 11/05/24 09/07/25 11:10 Currently or been in a relationship where the following occur: No concerns reported Const Other: Mildly sleepy. Most interaction is with daughter General: well developed; No acute distress Nutritional Appearance: well nourished Orientation/consciousness: patient oriented x3 HENMT Head: Yes normocephalic and Yes atraumatic Eyes General: appearance normal, both eyes and all related structures Pupils: Equal, round and reactive pupils present EOM: EOMs intact bilaterally Resp Effort & Inspection: normal respiratory effort Neuro General: patient oriented x3 Cranial nerves: Yes Equal, round and reactive pupils present Gait exam (Neuro): Assisted gait required Gait assisted method: wheelchair bound Psych Affect: normal affect Coding Level of Care Code Est Pt Level 3 (79198) Diagnoses Vulvar malignant neoplasm C51.9 Hypertension I10 Assessment & Plan Assessment & Plan (1) Vulvar malignant neoplasm: Code(s): C51.9 - Malignant neoplasm of vulva, unspecified Category: Medical Plan: Pt presented to [facility] ED with growth on labia and labial pain. Labs showed leukocytosis. Patient medicated with IV fluids, IV cefepime and metronidazole due to penicillin allergy. CT Scan showed: Large soft tissue abscess of the left labia majora extending into the inferior aspect of the vaginal canal. Internal pockets of gas, suspicious . The patient was treated earlier with cefepime 2 g IV and metronidazole 500 mg IV. Given the finding of pockets of gas, she was given clindamycin 600 mg IV. [facility] consult was obtained. Per rotor balancer specialist, this did not represent an abscess but unfortunately represents a malignancy. No surgical intervention or incision and drainage was recommended at that time. Plan was to arrange for referral to [facility] [[email or web address] to discuss options. (2) Hypertension: Code(s): I10 - Essential (primary) hypertension Category: Medical Plan: Blood pressure is low today. She will continue diltiazem Take losartan 12.5 mg daily (25 mg tablet; 1/2 tablet per day) and monitor blood pressures. If blood pressure is too high she can take the other half tablet Medications: Changed From losartan 25 mg PO DAILY 90 days 90 tabs 4RF To losartan 12.5 mg (1/2 x 25 mg) PO DAILY 45 tabs 4RF 90 days
[2025-09-07 11:20] VITALS: BP 90/50; PULSE 100; RESP 12; TEMP 36.7; O2SAT 98
--- OUTSIDE RECORDS SUMMARY | 2025-09-07 12:00 | XMS_ITS | Clinical Summary ---
Author Organization [employer] Address [address] [place] [address] Care Team Providers Care Generator Assembler Name Role Phone Unavailable Primary Care Provider [...] COVID-19 Vaccine ( - 2023-2 5 season) 2025 Influenza Vaccine (#1) 2025 HIB Vaccines Aged Out No longer eligi [...] patient's age to complete this topic Meningococcal B Vaccine Aged Out No l onger eligible based on patient's age to complete this topic Meningococcal Vaccine Aged Out No rosamaria bina eligible based on patient's age to complete this topic RSV under 20 months Aged Out No longe r eligible based on patient's age to complete this topic Rotavirus Vaccines Aged Out No longer eligible based on patient's age to complete this topic Insurance [place] [address] [place] [phone]
--- OUTSIDE RECORDS SUMMARY | 2025-09-07 12:00 | XMS_ITS ---
Author Name [facility] Organization Unknown Results Test Name/Text Value Interpretation Date Range Source BUN SerPl-mCnc 20.0 mg/dL 08/11/2025 8 - [address] Creat SerPl-mCnc 0.87 mg/dL 08/11/2025 0.4 - 1.1 H HCCT Glucose SerPl-mCnc 88.0 mg/dL 08/11/2025 65 - 99 H[facility]CT Sodium SerPl-sCnc 139.0 mmol/L 08/11/2025 136 - 14 5 H[facility]CT Chloride SerPl-sCnc 105.0 mmol/L 08/11/2025 98 - 1 07 H[facility]CT CO2 SerPl-sCnc 23.0 mmol/L 08/11/2025 22 - 33 HH CCT Anion Gap Bld-sCnc 11.0 08/11/2025 7 - 17 H[facility]CT Calcium SerPl-mCnc 8.8 mg/dL 08/11/2025 8.7 - 10.5 H[facility]CT Potassium SerPl-sCnc 4.2 mmol/L 08/11/2025 3.4 - 5 .3 HHCCT GFR/BSA.pred SerPlBld [id number] 69.0 08/11/2025 59 - HHCCT BUN/Creat SerPl 23.0 Ratio 08/11/2025 10 - 25 HH CCT Lactate SerPl-sCnc 0.8 mmol/L 08/11/2025 0.5 - 1.9 H[facility]CT Monocytes/leuk NFr Bld Auto 5.6 % 08/11/2025 [facility] Basophils/leuk NFr Bld Auto 0.3 % 08/11/2025 [facility]CT Neutrophils num Bld Auto 7.46 Thou/uL 08/11/2025 2 - 7.5 H[facility]CT MCV RBC Auto 89.0 fL 08/11/2025 80 - 100 [facility]CT WBC num Bld Auto 9.9 Thou/uL 08/11/2025 4 - 11 H[facility]CT MCH RBC Qn Auto 28.0 pg 08/11/2025 27 - [address] Imm Granulocytes/leuk NFr Bld Auto 0.3 % 08/11/2025 H[facility]CT MCHC RBC Auto-mCnc 31.6 g/dL 08/11/2025 30 - 36 H[facility]CT Platelet num Bld Auto 241.0 Thou/uL 08/11/2025 150 - 450 H[facility]CT RDW RBC Auto-Rto 13.2 % 08/11/2025 11.5 - 14.5 H[facility]CT Lymphocytes num Bld Auto 1.47 Thou/uL Below low normal 08/11 1.5 - 4.5 H[facility]CT Lymphocytes/leuk NFr Bld Auto 14.9 % 08/11/2025 H[facility]CT Eosinophil num Bld Auto 0.34 Thou/uL 08/11/2025 0 - 0.7 HHCCT PMV Bld Auto 9.4 fL 08/11/2025 7.5 - 12.5 HHCCT Basophils num Bld Auto 0.03 Thou/uL 08/11/2025 0 - 0.2 H[facility]CT RBC num Bld Auto 3.0 Mil/uL Below low normal 08/11/2025 4 - 5.4 [facility]CT Imm Granulocytes num Bld Auto 0.03 Thou/uL 08/11/2025 0 - 0.1 H[facility]CT Monocytes num Bld Auto 0.55 Thou/uL 08/11/2025 0.2 - 1.5 H[facility]CT Neutrophils/leuk NFr Bld Auto 75.5 % 08/11/2025 [facility]CT Eosinophil/leuk NFr Bld Auto 3.4 % 08/11/2025 CCT Hgb Bld-mCnc 8.4 g/dL Below low normal 08/11/2025 11.7 - 15 .7 HHCCT Hct VFr Bld Auto 26.6 % Below low normal 08/11/2025 35 - 47 HHCCT Encounters Encounter Type Encounter Reason Primary Diagnosis Location Date Emergency Other specified noninflammatory disorders of vulva and perineum Other specified noninflammatory disorders of vulva and perineum [facility] 08/11/2025 Care Team Organization Name Specialty Phone Email Start Date End Da te [facility] 08/13/2025 [facility] 08/11/2025 [facility] 08/11/2025
--- OUTSIDE RECORDS SUMMARY | 2025-09-07 12:00 | XMS_ITS | Clinical Summary ---
Author Organization [facility] Address [address] [place] [id number] Care Team Providers Care Cutting Table Operator First Name Role Phone Andrew Weiner MD Primary Care Provider Allergies Active Allergy Reactions Criticality Noted Date Comments Penicillins Angioedema High 08/11/2025 Active Problems Problem Noted Date Diagnosed Date Labial infection 08/11/2025 Encounters Date Type Department Care Team Description 08/11/2025 6:10 AM EDT Ancillary Procedure [facility] Radiology [address] [place] [address] Provider, File Room 08/11/2025 2:37 AM EDT - 08/11/2025 10:24 AM EDT [facility] Emergency Department [address] [place] [phone] David Martin MD Harris, Alexandra L, DO Vulvar mass (Primary Dx) Discharge Disposition: Home or Self Care 08/11/2025 Travel from Last 3 Months Social History Tobacco Use Types Packs/Day Years Used Date Smoking Tobacco: Never Assessed Comments Unknown Sex and Gender Information Value Date Recorded Sex Assigned at Female 08/11/2025 3:11 AM EDT Legal Sex Female 4:25 PM EDT Gender Identity Female 08/11/2025 3:11 AM EDT Sexual Orientation Heterosexual (straight) 08/11 3:11 AM EDT Last Filed Vital Signs Vital Sign Reading Time Taken Comments Blood Pressure 138/60 08/11/2025 10:19 AM EDT Pulse 75 08/11/2025 10:19 AM EDT Temperature 36.4 C (97.6 F) 08/11/2025 10:19 AM EDT Respiratory Rate 16 08/11/2025 10:19 AM EDT Oxygen Saturation 99% 08/11/2025 10:19 AM EDT Inhaled Oxygen Concentration - - Weight 40.8 kg (90 lb) 08/11/2025 2:34 AM EDT Height 152.4 cm (5') 08/11/2025 2:34 AM EDT Body Mass Index 17.58 08/11/2025 2:34 AM EDT Plan of Treatment Health Maintenance Due Date Last Done Comments Advance Care Planning 1950 Hepatitis C Virus Screening 1950 DTaP/Tdap/Td Vaccines (1 - Tdap) 1967 Pneumococcal Vaccines 50+ (1 of 1 - PCV) 1998 Zoster (Shingles) Vaccine (1 of 2) 1998 DXA Bone Density (Females,Ag es 65 and older) 2013 RSV Vaccine 50 years and old er and Patients (1 - 1-dose 75+ series) 2023 Influenza Vaccine 06/03/2025 COVID-19 Vaccine ( - 2023-2 5 season) 2025 Hepatitis B Vaccines Aged Out No long er eligible based on patient's age to complete this topic Procedures Procedure Name Priority Date/Time Associated Diagnosis Comments CT ABDOMEN ARCHIVE FOR REFERENCE ONLY Routine 08/11/2025 6:08 AM EDT ABO CONFIRMATION STAT 08/11/2025 3:45 AM EDT TYPE AND SCREEN STAT 08/11/2025 3:42 AM EDT LACTIC ACID, PLASMA STAT 08/11/2025 3 :42 AM EDT BASIC METABOLIC PANEL STAT 08/11/2025 3:42 AM EDT COMPLETE BLOOD COUNT, WITH DIFFERENTIAL STAT 08/11/2025 3:[address] ABDOMEN+PELVIS W/O CONTRAST STAT 08/11/2025 3:14 AM EDT from Last 3 Months Results * CT Abdomen Archive for Reference Only (08/11/2025 6:08 AM EDT) Narrative BUZZ - 08/11/2025 6:08 AM EDT This study has been auto finalized and does not contain a result. us File Room Provider IMG DIGITIZE FILMS Final Resu lt Performing Organization Address City/[facility]/ZIP Co de Phone Number BUZZ [phone] * ABO Confirmation (08/11/2025 3:45 AM EDT) ABO/Rh A POSITIVE 08/11/2025 5:18 AM EDT [facility] Blood Blood specimen / Unknown 08/11/2025 3:45 AM EDT 08/11/2025 3:57 AM EDT Rani Duque DO BLOOD BANK TEST ORDERABLES Final Result Performing Organization Address [facility] de Phone Number [address] [address], [address] [address] * (ABNORMAL) Complete Blood Count, with Differential (08/11/2025 3:42 AM EDT) White Blood Cell Count 9.9 4.0 - 11.0 Thou/uL 08/11/2025 3:51 AM EDT [facility] Platelet Count 241 150 - 450 Thou/uL 08/11/2025 3:51 AM EDT [facility] Hemoglobin 8.4(L) 11.7 - 15.7 g/dL 08/11/2025 3:51 AM EDT [facility] Hematocrit 26.6(L) 35.0 - 47.0 % 08/11/2025 3:51 AM EDT [facility] Red Blood Cell Count 3.00(L) 4.00 - 5.40 Mil/uL 08/11/2025 3:51 AM EDT [facility] MCV 89 80 - 100 fL 08/11/2025 3:51 AM EDT [facility] MCH 28.0 27.0 - 31.0 pg 08/11/2025 3:51 AM EDT [facility] MCHC 31.6 30.0 - 36.0 g/dL 08/11/2025 3:51 AM EDT [facility] RDW 13.2 11.5 - 14.5 % 08/11/2025 3:51 AM EDT [facility] MPV 9.4 7.5 - 12.5 fL 08/11/2025 3:51 AM EDT [facility] Neutrophils Auto 75.5 % 08/11/20 3:51 AM EDT [facility] Immature Granulocytes 0.3 % 08/11/2025 3:51 AM EDT [facility] Lymphocytes Auto 14.9 % 08/11/20 3:51 AM EDT [facility] Monocytes Auto 5.6 % 08/11/2025 3:51 AM EDT [facility] Eosinophils Auto 3.4 % 08/11/20 3:51 AM EDT [facility] Basophils Auto 0.3 % 08/11/2025 3:51 AM T [facility] Abs Neutrophils Auto 7.46 2.00 - 7.50 Thou/uL 08/11/2025 3:51 AM EDT [facility] Abs Immature Granulocytes 0.03 0.00 - 0.10 Thou/uL 08/11/2025 3:51 AM EDT [facility] Abs Lymphocytes Auto 1.47(L) 1.50 - 4.50 Thou/uL 08/11/2025 3:51 AM EDT [facility] Abs Monocytes Auto 0.55 0.20 - 1.50 Thou/uL 08/11/2025 3:51 AM EDT [facility] Abs Eosinophils Auto 0.34 0.00 - 0.70 Thou/uL 08/11/2025 3:51 AM EDT [facility] Abs Basophils Auto 0.03 0.00 - 0.20 Thou/uL 08/11/2025 3:51 AM T [facility] Blood Blood specimen / Unknown 08/11/2025 3:42 AM EDT 08/11/2025 3:49 AM EDT Rani Duque DO LAB BLOOD ORDERABLES Final Result [address] [address], [address] [address] * Type and Screen (08/11/2025 3:42 AM EDT) ABO/Rh A POSITIVE 08/11/2025 4:56 AM EDT [facility] Antibody Screen NEGATIVE 4:56 AM EDT [facility] Specimen Expiration 08/14/2025 08/11/2025 4:56 AM EDT [facility] Blood Blood specimen / Unknown 08/11/2025 3:42 AM EDT 08/11/2025 3:48 AM EDT us Rani Duque DO BLOOD BANK TEST ORDERABLES Final Result Performing Organization Address [facility]/ZIP Co de Phone Number [address] [address], [address] [address] * Lactic Acid, Plasma Now and repeat in 2h (08/11/2025 3:42 AM EDT) Lactic Acid 0.8 0.5 - 1.9 mmol/L 08/11/2025 4:11 AM EDT [facility] Blood Blood specimen / Unknown 08/11/2025 3:42 AM EDT 08/11/2025 3:48 AM EDT us Rani Duque DO LAB BLOOD ORDERABLES Final Result [address] [address], [address] [address] * Basic Metabolic Panel (08/11/2025 3:42 AM EDT) Glucose 88 65 - 99 mg/dL 08/11/2025 4:16 AM EDT [facility] Comment:Fasting: <100 mg/dL, Non-Fasting: <200 mg/dL (ADA 2005) Blood Urea Nitrogen (BUN) 20 8 - 21 mg/dL 08/11/2025 4:16 AM EDT [facility] Creatinine 0.87 0.40 - 1.10 mg/dL 08/11/2025 4:16 AM EDT [facility] eGFR 69 >59 08/11/2025 4:16 AM EDT [facility] Comment:CKD-EPI (2020) in mL /min/1.73 sq meters. Sodium 139 136 - 145 mmol/L 08/11/2025 4:16 AM EDT [facility] Potassium 4.2 3.4 - 5.3 mmol/L 08/11/2025 4:16 AM EDT [facility] Chloride 105 98 - 107 mmol/L 08/11/2025 4:16 AM EDT [facility] CO2 23 22 - 33 mmol/L 08/11/2025 4:16 AM EDT [facility] Anion Gap 11 7 - 17 08/11/2025 4:16 AM EDT [facility] Calcium 8.8 8.7 - 10.5 mg/dL 08/11/2025 4:16 AM EDT [facility] BUN/Creatinine Ratio 23 10.0 - 25.0 Ratio 08/11/2025 4:16 AM EDT [facility] Blood Blood specimen / Unknown 08/11/2025 3:42 AM EDT 08/11/2025 3:49 AM EDT Rani Duque DO LAB BLOOD ORDERABLES Final Result [address] [place] [address], [address] [address] * CT Abdomen+pelvis w/o contrast (08/11/2025 3:14 AM EDT) Anatomical Region Laterality Modality Abdomen, Pelvis Computed Tomogra phy Impressions 08/11/2025 7:37 AM EDT Soft tissue thickening in the left external genitalia, limited evaluation of this noncontrast study, differential diagnosis includes neoplasm and inflammation. Consider correlation with MRI or repeating the study with contrast. No evidence of abscesses, limited evaluation for abscesses at this noncontrast study. Consider correlation with MRI or repeating the study with contrast. Narrative 08/11/2025 7:[address] scan of the abdomen and pelvis August 11, 2025 0309 hours Clinical History: Left labial swelling; query abscess, necrotizing infection, or malignancy. Technique: Helical axial sections with sagittal and coronal reformats of the abdomen and pelvis were obtained without intravenous contrast. Iterative reconstruction technique was employed to reduce patient radiation exposure. Radiation Dose: Total exam DLP 207mGy/cm. Comparison: None available at the time of this report. Findings: The lung bases are clear. The liver, gallbladder, pancreas, spleen, kidneys and adrenals are unremarkable on this noncontrast study. No evidence of bowel obstruction. No evidence of appendicitis. There is no mesenteric or retroperitoneal adenopathy. Excreted contrast in the urinary bladder and bilateral collecting systems. There is no free fluid or free air. No evidence of abscesses, limited evaluation for abscesses at this noncontrast study. Soft tissue thickening in the left external genitalia, limited evaluation of this noncontrast study. The osseous structures are unremarkable. Procedure Note Bao Gupta MD - 08/11/2025 CT scan of the abdomen and pelvis August 11, 2025 0309 hours Clinical History: Left labial swelling; query abscess, necrotizinginfection, or malignancy. Technique: Helical axial sections with sagittal and coronal reformats ofthe abdomen and pelvis were obtained without intravenous contrast.Iterative reconstruction technique was employed to reduce patientradiation exposure. Radiation Dose: Total exam DLP 207mGy/cm. Comparison: None available at the time of this report. Findings: The lung bases are clear. The liver, gallbladder, pancreas, spleen, kidneys and adrenals areunremarkable on this noncontrast study. No evidence of bowel obstruction. No evidence of appendicitis. There is nomesenteric or retroperitoneal adenopathy. Excreted contrast in the urinary bladder and bilateral collecting systems.There is no free fluid or free air. No evidence of abscesses, limited evaluation for abscesses at thisnoncontrast study. Soft tissue thickening in the left external genitalia, limited evaluationof this noncontrast study. The osseous structures are unremarkable. IMPRESSION: Soft tissue thickening in the left external genitalia, limited evaluationof this noncontrast study, differential diagnosis includes neoplasm andinflammation. Consider correlation with MRI or repeating the study withcontrast. No evidence of abscesses, limited evaluation for abscesses at thisnoncontrast study. Consider correlation with MRI or repeating the studywith contrast. Rani Duque DO IMG CT ORDERABLES Final Re sult from Last 3 Months Insurance MEDICARE PART A & B [facility] Care Teams Cutting Table Operator First Relationship Specialty Start Date End Date Andrew Weiner MD [address] [place] [address] [place] [address] PCP - General Family Medicine 08/11/25
== END 2025-09-07 11:57 | disposition home or self-care (01) ==
LOC: HO.HMCFM 10:21
PROVIDERS: PCP Family Medicine; Visit Provider Family Medicine
DX: C51.9 Malignant neoplasm of vulva, unspecified (principal); I10 Essential (primary) hypertension

== ENCOUNTER → 2025-09-07 10:20 | Outpatient (BNVA) | payer MEDICARE, MEDICAID, SELFPAY | PROVIDERS: PCP Family Medicine; Visit Provider Family Medicine | DX: C51.9 Malignant neoplasm of vulva, unspecified (principal); I10 Essential (primary) hypertension | CPT/HCPCS: 99212 ==

== ENCOUNTER 2025-10-02 10:32 | Inpatient (IN) | payer MEDICARE, MEDICAID, SELFPAY ==
--- NOTE | ~2025-10-02 | XR_ITS ---
CLINICAL HISTORY: SOB Chest Radiograph Comparison: None available Findings: No cardiomegaly. Normal mediastinal contours. No pneumothorax. No opacity. Trace fluid in the right minor fissure. No acute findings in the upper abdomen. No acute fracture. Impression: Trace fluid in the right minor fissure. This document has been electronically signed by: Nancy Delacruz MD on 10/02/2025 14:53:44
[2025-10-02 10:48] VITALS: BP 92/52; PULSE 86
[2025-10-02 11:22] VITALS: BP 79/42; PULSE 93; RESP 18; TEMP 36.1; O2SAT 94; BMI 14.6
--- NOTE | 2025-10-02 11:30 | ED.GENADULT ---
HPI - General Adult General Chief complaint: General Medical Stated complaint: NOT ACTING HERSELF WHEN WOKE UP PER FAMILY Time Seen by Provider: 10/02/25 11:05 Related Data Previous Rx's ?Medication ?Instructions ?Recorded walker (Ultra-Light Rollator misc) #1 ea 11/05/24 diltiazem HCl 30 mg tablet 30 mg PO DAILY 90 days #90 tabs 12/05/24 ferrous sulfate 325 mg (65 mg 325 mg PO DAILY 90 days #90 tabs 12/05/24 iron) tablet levothyroxine 50 mcg tablet 50 mcg PO DAILY 90 days #90 tabs 12/05/24 (Levo-T) metformin 500 mg tablet 500 mg PO DAILY 90 days #90 tabs 12/05/24 atorvastatin 40 mg tablet 40 mg PO DAILY 90 days #90 tabs 12/16/24 donepezil 10 mg tablet 10 mg PO DAILY 90 days #90 tabs 08/16/25 losartan 25 mg tablet 12.5 mg (1/2 x 25 mg) PO DAILY 90 09/07/25 days #45 tabs Allergies Allergy/AdvReac Type Severity Reaction Status Date / Time Penicillins Allergy Severe ANGIOEDEMA Verified 10/02/25 11:22 [facility] Social History Social History Housing: House Patient Tobacco Use Status: Never used Tobacco e-Cigarette/Vaping Use: Never Used Second Hand Smoke Exposure: No Advance Directives: No Advance Directives Information Provided: No service: No Current occupational status: retired Current occupational exposures/hazards: No Cognitive needs: No Hearing needs: No Vision needs: Yes Physical Exam ED Vital Signs: Vital Signs - 24 hr 10/02/25 11:22 10/02/25 11:40 10/02/25 12:10 Temperature 97 F 97 F Pulse Rate 93 93 79 Respiratory Rate 18 18 18 Blood Pressure 79/42 L 85/38 L 80/33 L Pulse Oximetry 94 93 92 Oxygen Delivery Method Room Air Room Air Room Air 10/02/25 12:11 Temperature Pulse Rate Respiratory Rate Blood Pressure 71/32 L Pulse Oximetry Oxygen Delivery Method BMI result Body Mass Index 14.6 Medications Administered Discontinued Medications Generic Name Dose Route Start Last Admin Trade Name Freq PRN Reason Stop Dose Admin Ceftriaxone Sodium 2 gm/ 50 mls @ 100 mls/hr 10/02/25 11:19 10/02/25 12:20 Sodium Chloride IV 10/02/25 11:48 Infused ONCE ONE Infusion Sodium Chloride 1,014 mls @ 1,014 mls/hr 10/02/25 11:23 10/02/25 12:33 Ns 30 ml/kg infuse over 1 hr (1014 ml) 10/02/25 12:22 Infused IV Infusion .Q1H STA Vancomycin HCl 1,000 mg/ 270 mls @ 270 mls/hr 10/02/25 11:24 10/02/25 11:57 Sodium Chloride IV 10/02/25 12:23 270 mls/hr ONCE ONE Administration Medical Decision Making Lab Data 10/02/25 11:34 10/02/25 11:34 Labs: Lab Results 10/02/25 Range/Units 11:34 WBC 47.8 H* (4.8-10.8) X10*3/uL RBC 4.37 D (4.20-5.50) X10*6/uL Hgb 11.9 L D (12.0-16.0) g/dl Hct 38.2 D (37.0-47.0) % MCV 87.4 (80.0-98.0) fL MCH 27.2 (27.0-33.0) pg MCHC 31.2 (31.0-35.0) g/dl RDW 15.0 (11.0-16.0) % Plt Count 579 H D (160-400) X10*3/uL MPV 9.4 (9.4-12.3) fL Immature Gran % (Auto) Cancelled Neut % (Auto) Cancelled Lymph % (Auto) Cancelled [place] % (Auto) Cancelled Eos % (Auto) Cancelled Baso % (Auto) Cancelled Lymph # (Auto) Cancelled [place] # (Auto) Cancelled Eos # (Auto) Cancelled Baso # (Auto) Cancelled Abs Immat Gran (auto) Cancelled Absolute Neuts (auto) Cancelled Absolute Nucleated RBC 0.000 (0.0-0.012) X10*3/uL Nucleated RBC % (auto) 0.0 (0.0-0.2) /100WBC Sodium 139 (135-145) mmol/L Potassium 6.2 H* D (3.3-5.1) mmol/L Chloride 104 (96-108) mmol/L Carbon Dioxide 20 L (22-29) mmol/L Anion Gap 21 H (12-20) BUN 80 H (9-16) mg/dL Creatinine 3.54 H (0.5-1.4) mg/dL Estim Creat Clear Calc 7.1 Estimated GFR 13 Random Glucose 105 (60-115) mg/dL Lactic Acid 2.5 H* (0.5-2.0) mmol/L Calcium 13.1 H* D (8.4-10.2) mg/dL Magnesium 2.6 (1.6-2.6) mg/dL Total Bilirubin 0.5 (0.0-1.0) mg/dL AST 51 H (5-31) U/L ALT 24 (0-31) U/L Alkaline Phosphatase 150 H (39-117) U/L Total Protein 8.6 H (6.5-8.0) g/dL Albumin 3.7 (3.5-5.0) g/dL Discharge Plan Discharge Prescriptions: No Action diltiazem HCl 30 mg tablet 30 mg PO DAILY 90 Days Qty: 90 3RF ferrous sulfate 325 mg (65 mg iron) tablet 325 mg PO DAILY 90 Days Qty: 90 3RF levothyroxine [Levo-T] 50 mcg tablet 50 mcg PO DAILY 90 Days Qty: 90 4RF metformin 500 mg tablet 500 mg PO DAILY 90 Days Qty: 90 3RF atorvastatin 40 mg tablet 40 mg PO DAILY 90 Days Qty: 90 3RF donepezil 10 mg tablet 10 mg PO DAILY 90 Days Qty: 90 2RF (DME) Ultra-Light Rollator Misc See Rx Instructions .Route Qty: 1 0RF Rx Instructions: As directed, 999 days losartan 25 mg tablet 12.5 mg PO DAILY 90 Days Qty: 45 4RF Print Language: Yi
--- NOTE | 2025-10-02 11:31 | ED_ITS ---
HPI - General Adult General Chief complaint: General Medical Stated complaint: NOT ACTING HERSELF WHEN WOKE UP PER FAMILY Time Seen by Provider: 10/02/25 11:05 History of Present Illness ED Provider: Jes Thompson NP HPI narrative: 75-year-old female primarily Kyrgyz-speaking medical history significant for hypertension, hyperlipidemia, hypothyroidism, CKD stage 3, Alzheimer's disease, presents to the ED with chief complaint of alteration in mentation. Per the daughter who was present at bedside, the patient currently has vulvar cancer but is not undergoing active chemotherapy/cancer treatments. However, the area is now yellow in color, and has a foul odor. They report the patient has been eating/drinking less and speaking much less today in comparison to her baseline. She also has only had a syringe of water over the past several days. During her prior ER visit on August 10, 2025, it was found that she had a large soft tissue abscess of the left labia majora extending into the inferior aspect of the vaginal canal with a question of internal pockets of gas . She was then transferred to the [facility]. It appears the patient was at the [facility] on 08/11/2025 in their ED after transfer there, at that time was discharged home with diagnosis of vulvar malignancy, with no abscess at that time. They recommended no emergent surgical intervention but follow up with Gynecology Oncology. She was not given antibiotics. Today, they expressed concern over the smell and change in behavior. No complaints of chest pain, shortness of breath, abdominal pain, nausea, vomiting, diarrhea, or constipation. No documented fevers at home. Arrival vital signs are concerning with hypotension of 79/42, though afebrile, and nontachycardic, without hypoxia. Related Data Previous Rx's ?Medication ?Instructions ?Recorded walker (Ultra-Light Rollator misc) #1 ea 11/05/24 diltiazem HCl 30 mg tablet 30 mg PO DAILY 90 days #90 tabs 12/05/24 ferrous sulfate 325 mg (65 mg 325 mg PO DAILY 90 days #90 tabs 12/05/24 iron) tablet levothyroxine 50 mcg tablet 50 mcg PO DAILY 90 days #9 0 tabs 12/05/24 (Levo-T) metformin 500 mg tablet 500 mg PO DAILY 90 days #90 tabs 12/05/24 atorvastatin 40 mg tablet 40 mg PO DAILY 90 days #90 t abs 12/16/24 donepezil 10 mg tablet 10 mg PO DAILY 90 days #90 t abs 08/16/25 losartan 25 mg tablet 12.5 mg (1/2 x 25 mg) PO DAMARIS LY 90 09/07/25 days #45 tabs Allergies Allergy/AdvReac Type Severity Reaction Status Date / Time Penicillins Allergy Severe ANGIOEDEMA Verified 10/02/25 11:22 Review of Systems 2 Review of Systems: ROS is otherwise negative unless mentioned in HPI. [facility] Social History Social History Housing: House Patient Tobacco Use Status: Never used Tobacco e-Cigarette/Vaping Use: Never Used Second Hand Smoke Exposure: No Advance Directives: No Advance Directives Information Provided: No service: No Current occupational status: retired Current occupational exposures/hazards: No Cognitive needs: No Hearing needs: No Vision needs: Yes Physical Exam ED Exam Exam: Nursing notes and vital signs reviewed. Constitutional: Ill-appearing. NAD. Eyes: EOMI. ENT: Oropharynx dry. Neck: Normal inspection. Neck supple. CVS: Normal heart rate and rhythm. Pulses normal. Respiratory: No respiratory distress. Breath sounds normal. Abdomen: Soft, tenderness throughout the lower abdomen. Pelvis: Left labial wound, active drainage of pus. Foul odor. Photo below. Skin: Skin warm and dry. Extremities: No lower extremity edema. Neuro: Awake. Vital Signs: Vital Signs - 24 hr 10/02/25 11:22 10/02/25 11:40 10/02/25 12:10 Temperature 97 F 97 F Pulse Rate 93 93 79 Respiratory Rate 18 18 18 Blood Pressure 79/42 L 85/38 L 80/33 L Pulse Oximetry 94 93 92 Oxygen Delivery Method Room Air Room Air Room Air 10/02/25 12:11 Temperature Pulse Rate Respiratory Rate Blood Pressure 71/32 L Pulse Oximetry Oxygen Delivery Method BMI result Body Mass Index 14.6 Medications Administered Discontinued Medications Generic Name Dose Route Start Last Admin Trade Name Freq PRN Reason Stop Dose Admin Ceftriaxone Sodium 2 gm/ 50 mls @ 100 mls/hr 10/02/25 11:19 10/02/25 12:20 Sodium Chloride IV 10/02/25 11:48 Infused ONCE ONE Infusion Sodium Chloride 1,014 mls @ 1,014 mls/hr 10/02/25 11:23 10/02/25 12:33 Ns 30 ml/kg infuse over 1 hr (1014 ml) 10/02/25 12:22 Infused IV Infusion .Q1H STA Vancomycin HCl 1,000 mg/ 270 mls @ 270 mls/hr 10/02/25 11:24 10/02/25 12:34 Sodium Chloride IV 10/02/25 12:23 Infused ONCE ONE Infusion Medical Decision Making Medical Decision Making [facility] Narrative: 1150-- Upon arrival, the patient has low blood pressure, 79/42. She is frail and elderly, weighing less than 80 lb. Therefore, she likely does have blood pressures in the high 90s-mid 100s systolically at baseline. I reviewed the last ED visit where she was 117/43. Clinically she has a left-sided labial cellulitis, I have concern for a tunneling wound as it is draining pus, and there seems to be a new wound above the previous wound from last ED visit. It has a foul odor. Given her low blood pressure, paired with white blood cell count >40, I have suspicion for sepsis. Sepsis alert called. Blood cultures, lactic acid have already been ordered. Lactic is pending. Imaging has been ordered and is pending. Pending BMP. 1215-- I had an extensive discussion with the family, her daughter who is her healthcare proxy at the bedside with the assist of the cardroom worker. Her lactic acid level is 2.5, potassium is 6.2, calcium is 13.1, and she is now and kidney failure with a creatinine level of 3.54, when she previously has been 0.85. Her EKG also has several changes, with a new right bundle-branch block, LAFB and peak T-waves in comparison to previous. Otherwise she has sinus rhythm with a rate of 88. At this time they do not want invasive procedures performed. They are agreeable with IV antibiotics, and IV fluids at this time. They are agreeable to the CT scan of the abdomen and pelvis, if the patient will tolerate getting it done. We discussed how she can not receive doses of pain medications given her low blood pressure readings. We discussed placing her on IV peripheral pressors, they have declined that at this time and would like to see if the patient's blood pressure improves with IV fluids. Further, they would like to discuss with their extended family before making a decision regarding code status. Patient is currently receiving IV antibiotics, IV fluid bolus x1. Will reassess blood pressure in 5-10 minutes and discuss code status again when the family has discussed privately. 1230-- I had an extensive discussion with the patient, her family, as well as with the attending physician on this chart Dr. Rodriguez, and the decision has been made to change the patient's code status to comfort measures only. Given she has significant cancer and now a very severe infection, her vital signs are not stable as her blood pressure continues to decline, and they do not want invasive measures performed. They would like for me to order pain control for this patient, and keep her comfortable. I have discontinued the imaging, antibiotics. We will make the patient comfortable and admit her to the hospitalist service for comfort measures only. They expressed understanding with this plan of care. Customer Loyalty Representative services were utilized. Differential Diagnosis Differential Diagnoses: The differential diagnosis associated with the presentation includes 1150-- Cellulitis, labial abscess, labial malignancy, Sepsis Admission/Observation Consideration of admission/observation: Escalation of care including admission/observation considered see mdm, will admit for RETAIL EQUIPMENT ASSOCIATE Consult Healthcare Provider Management of the patient was discussed with: Hospitalist Lab Data MDM Lab Attestation statement: I reviewed the patient's lab results. (see mdm, significant abnormalities) 10/02/25 11:34 10/02/25 11:34 Labs: Lab Results 10/02/25 Range/Units 11:34 WBC 47.8 H* (4.8-10.8) X10*3/uL RBC 4.37 D (4.20-5.50) X10*6/uL Hgb 11.9 L D (12.0-16.0) g/dl Hct 38.2 D (37.0-47.0) % MCV 87.4 (80.0-98.0) fL MCH 27.2 (27.0-33.0) pg MCHC 31.2 (31.0-35.0) g/dl RDW 15.0 (11.0-16.0) % Plt Count 579 H D (160-400) X10*3/uL MPV 9.4 (9.4-12.3) fL Immature Gran % (Auto) Cancelled Neut % (Auto) Cancelled Lymph % (Auto) Cancelled [place] % (Auto) Cancelled Eos % (Auto) Cancelled Baso % (Auto) Cancelled Lymph # (Auto) Cancelled [place] # (Auto) Cancelled Eos # (Auto) Cancelled Baso # (Auto) Cancelled Abs Immat Gran (auto) Cancelled Absolute Neuts (auto) Cancelled Absolute Nucleated RBC 0.000 (0.0-0.012) X10*3/uL Nucleated RBC % (auto) 0.0 (0.0-0.2) /100WBC Sodium 139 (135-145) mmol/L Potassium 6.2 H* D (3.3-5.1) mmol/L Chloride 104 (96-108) mmol/L Carbon Dioxide 20 L (22-29) mmol/L Anion Gap 21 H (12-20) BUN 80 H (9-16) mg/dL Creatinine 3.54 H (0.5-1.4) mg/dL Estim Creat Clear Calc 7.1 Estimated GFR 13 Random Glucose 105 (60-115) mg/dL Lactic Acid 2.5 H* (0.5-2.0) mmol/L Calcium 13.1 H* D (8.4-10.2) mg/dL Magnesium 2.6 (1.6-2.6) mg/dL Total Bilirubin 0.5 (0.0-1.0) mg/dL AST 51 H (5-31) U/L ALT 24 (0-31) U/L Alkaline Phosphatase 150 H (39-117) U/L Total Protein 8.6 H (6.5-8.0) g/dL Albumin 3.7 (3.5-5.0) g/dL Independent Interpretation I performed an independent interpretation of an: EKG Interpretation: Rate: 88 Rhythm: SR, RBBB, LAFB [place]: 66/-67/53 Normal P waves. Normal NACHO. Normal QRS complex. ST T wave : no dep, elev qTC: 433 prior studies: this is abnormal in comparison The study has been interpreted contemporaneously by me. Independent Historian Clinical information obtained from an independent historian. History obtained from or confirmed by: Other (Son, Daughter) External Record Review External record reviewed: Outpatient record ([facility]), Prior outpatient radiology ([facility]) and Other (ED Record) Chronic Conditions Patient?s care impacted by: Cancer and Other (CKD) Social Determinants Patient?s care significantly limited by Social Determinants of Health including: Problems related to primary support group Critical Care Time Critical Care Time Critical Care Time: Yes Total Critical Care Time: 45 Attestation: Performed by: Self Total critical care time: approximately 45 minutes Due to a high probability of clinically significant, life-threatening deterioration, the patient required my highest level of preparedness to intervene emergently and I personally spent this critical care time directly at personally managing this patient. For critical care time included obtaining a history, examining the patient, pulse oximetry, ordering and review of studies, arranging urgent treatment with development of a management plan, evaluation of the patient's response to treatment, frequent assessment, and discussions with other providers. The critical care time was performed to assess and manage the high probability of eminent, life-threatening deterioration that could result and multi organ failure. Please see MDM section in the rest of the note for further information on patient assessment and treatment. Discharge Plan Discharge Clinical Impression: Vulvar cancer, Sepsis Patient Disposition: Admitted As Inpatient Print Language: Kyrgyz
[2025-10-02 11:40] VITALS: BP 85/38; PULSE 93; RESP 18; TEMP 36.1; O2SAT 93
[2025-10-02 11:47] LABS: Hematocrit 38.2 % (37.0-47.0); Hemoglobin 11.9 g/dl (12.0-16.0); Mean Corpuscular HGB Conc 31.2 g/dl (31.0-35.0); Mean Corpuscular Hemoglobin 27.2 pg (27.0-33.0); Mean Corpuscular Volume 87.4 fL (80.0-98.0); NRBC Abs Auto 0.000 X10*3/uL (0.0-0.012); NRBC Pct Auto 0.0 /100WBC (0.0-0.2); Platelet Count 579 X10*3/uL (160-400); Red Blood Count 4.37 X10*6/uL (4.20-5.50)
--- OUTSIDE RECORDS SUMMARY | 2025-10-02 11:50 | XMS_ITS | Clinical Summary ---
Author Organization [employer] Address [address] [place] [address] Care Team Providers Care Electronics Tech Name Role Phone Unavailable Primary Care Provider [...] Date Last Done Comments Depression Screening 1948 Lipid Panel 1948 SDOH Screening 1948 Alcohol/Substance Use Screening 1960 Tobacco Screening 1960 Hepatitis C Screening 1966 DTaP/Tdap/Td Vaccines (1 - Tdap) 1967 Pneumococcal Vaccine: 50+ Ye ars (1 of 1 - PCV) 1998 Zoster Vaccines (1 of 2) 1998 RSV Patients and Pa tients Aged 60 years or older (1 - 1-dose 75+ series) 2023 COVID-19 Vaccine ( - 2024-2 6 season) 2025 Influenza Vaccine (#1) 2025 HIB [...] age to complete this topic Insurance MEDICARE [place] [phone]
--- OUTSIDE RECORDS SUMMARY | 2025-10-02 11:50 | XMS_ITS | Clinical Summary ---
Author Organization [facility] Address [address] [place] [address] Care Team Providers Care Head Bone Grinder Name Role Phone Andrew Weiner MD Primary Care Provider Allergies Active Allergy Reactions Criticality Noted Date Comments Penicillins Angioedema High 08/11/2025 Active Problems Problem Noted Date Diagnosed Date Labial infection 08/11/2025 Encounters Date Type Department Care Team Description 08/11/2025 6:10 AM EDT Ancillary Procedure [facility] Radiology [address] [place] [address] Provider, File Room 08/11/2025 2:37 AM EDT - 08/11/2025 10:24 AM EDT [facility] Emergency Department [address] [place] [phone] David Martin MD Harris, Alexandra L, Vulvar mass (Primary Dx) Discharge Disposition: Home or Self Care from Last 3 Months Social History Tobacco [...] series) 2023 Influenza Vaccine 06/03/2025 COVID-19 Vaccine (2023-2 5 season) 2025 Hepatitis B Vaccines Aged [...] FILMS Final Resu lt Performing Organization Address City/[facility]/ZIP Co de Phone Number BUZZ [phone] * ABO Confirmation (08/11/2025 3:45 AM EDT) ABO/Rh A POSITIVE 08/11/2025 5:18 AM EDT [facility] Blood Blood specimen / Unknown 08/11/2025 3:45 AM EDT 08/11/2025 3:57 AM EDT Rani Duque DO BLOOD BANK TEST ORDERABLES Final Result Performing Organization Address [facility] [place] [address], [place] [address] * (ABNORMAL) Complete Blood Count, with Differential (08/11/2025 3:42 AM EDT) White Blood Cell Count 9.9 4.0 - 11.0 Thou/uL 08/11/2025 3:51 AM EDT [facility] Platelet Count 241 150 - 450 Thou/uL 08/11/2025 3:51 AM EDT [facility] Hemoglobin 8.4(L) 11.7 - 15.7 g/dL 08/11/2025 3:51 AM EDT [facility] Hematocrit 26.6(L) 35.0 - 47.0 % 08/11/2025 3:51 AM EDT [facility] Red Blood Cell Count 3.00(L) 4.00 - 5.40 Mil/uL 08/11/2025 3:51 AM EDT [facility] MCV 89 80 - 100 fL 08/11/2025 3:51 AM EDT [facility] MCH 28.0 27.0 - 31.0 pg 08/[facility]2025 [facility] 31.6 30.0 - 36.0 g/dL 08/11/2025 3:51 AM EDT [facility] RDW 13.2 11.5 - 14.5 % 08/11/2025 3:51 AM EDT [facility] MPV 9.4 7.5 - 12.5 fL 08/11/2025 3:51 AM EDT [facility] Neutrophils Auto 75.5 % 08/11/20 3:51 AM EDT [facility] Immature Granulocytes 0.3 % 08/11/2025 3:51 AM EDT [facility] Lymphocytes Auto 14.9 % 08/11/20 3:51 AM EDT [facility] Monocytes Auto 5.6 % 08/11/2025 3:51 AM EDT [facility] Eosinophils Auto 3.4 % 08/11/20 3:51 AM EDT [facility] Basophils Auto 0.3 % 08/11/2025 3:51 AM EDT [facility] Abs Neutrophils Auto 7.46 2.00 - 7.50 Thou/uL 08/11/2025 3:51 AM EDT [facility] Abs Immature Granulocytes 0.03 0.00 - 0.10 Thou/uL 08/11/2025 3:51 AM EDT [facility] Abs Lymphocytes Auto 1.47(L) 1.50 - 4.50 Thou/uL 08/11/2025 3:51 AM EDT [facility] Abs Monocytes Auto 0.55 0.20 - 1.50 Thou/uL 08/11/2025 3:51 AM EDT [facility] Abs Eosinophils Auto 0.34 0.00 - 0.70 Thou/uL 08/11/2025 3:51 AM EDT [facility] Abs Basophils Auto 0.03 0.00 - 0.20 Thou/uL 08/11/2025 3:51 AM T [facility] Blood Blood specimen / Unknown 08/11/2025 3:42 AM EDT 08/11/2025 3:49 AM EDT us Rani Duque DO LAB BLOOD ORDERABLES Final Result [address] [address], [address] [address] * Type and Screen (08/11/2025 3:42 AM EDT) ABO/Rh A POSITIVE 08/11/2025 4:56 AM EDT [facility] Antibody Screen NEGATIVE 4:56 AM EDT [facility] Specimen Expiration 08/14/2025 08/11/2025 4:56 AM EDT [facility] Blood Blood specimen / Unknown 08/11/2025 3:42 AM EDT 08/11/2025 3:48 AM EDT us Rani Duque DO BLOOD BANK TEST ORDERABLES Final Result Performing Organization Address City/[facility]/ZIP Co de Phone Number [address] [address], [address] [address] * Lactic Acid, Plasma Now and repeat in 2h (08/11/2025 3:42 AM EDT) Lactic Acid 0.8 0.5 - 1.9 mmol/L 08/11/2025 4:11 AM EDT [facility] Blood Blood specimen / Unknown 08/11/2025 3:42 AM EDT 08/11/2025 3:48 AM EDT us Rani Duque DO LAB BLOOD ORDERABLES Final Result [address] [address], [address] [address] * Basic Metabolic Panel (08/11/2025 3:42 AM EDT) Glucose 88 65 - 99 mg/dL 08/11/2025 4:16 AM EDT [facility] Comment:Fasting: <100 mg/dL, Non-Fasting: <200 mg/dL (ADA 2005) Blood Urea Nitrogen (BUN) 20 8 - 21 mg/dL 08/11/2025 4:16 AM EDT [facility] Creatinine 0.87 0.40 - 1.10 mg/dL 08/11/2025 4:16 AM EDT [facility] eGFR 69 >59 08/11/2025 4:16 AM EDT [facility] Comment:CKD-EPI (2020) in mL /min/1.73 sq meters. Sodium 139 136 - 145 mmol/L 08/11/2025 4:16 AM EDT [facility] Potassium 4.2 3.4 - 5.3 mmol/L 08/11/2025 4:16 AM EDT [facility] Chloride 105 98 - 107 mmol/L 08/11/2025 4:16 AM EDT [facility] CO2 23 22 - 33 mmol/L 08/11/2025 4:16 AM EDT [facility] Anion Gap 11 7 - 17 08/11/2025 4:16 AM EDT [facility] Calcium 8.8 8.7 - 10.5 mg/dL 08/11/2025 4:16 AM EDT [facility] BUN/Creatinine Ratio 23 10.0 - 25.0 Ratio 08/11/2025 4:16 AM EDT [facility] Blood Blood specimen / Unknown 08/11/2025 3:42 AM EDT 08/11/2025 3:49 AM EDT Rani Duque DO LAB BLOOD ORDERABLES Final Result [address] [address], [address] [address] * CT Abdomen+pelvis w/o contrast (08/11/2025 3:14 [...] Months Insurance MEDICARE PART A & B [facility] Care Teams Head Bone Grinder Relationship Specialty Start Date End Date Andrew Weiner MD [address] [place] [address] [place] [address] PCP - General Family Medicine 08/11/25
[2025-10-02 11:54] LABS: White Blood Count 47.8 X10*3/uL (4.8-10.8)
--- NOTE | 2025-10-02 12:01 | ECG_ITS ---
Test Reason : AMS Blood Pressure : */* mmHG Vent. Rate : 88 BPM Atrial Rate : 88 BPM P-R Int : 140 ms QRS Dur : 126 ms QT Int : 358 ms P-R-T Axes : 66 -67 53 degrees QTcB Int : 433 ms Normal sinus rhythm Right bundle branch block Left anterior fascicular block Bifascicular block Abnormal ECG When compared with ECG of 30-Mar-2010 14:35, Bifascicular block Present Referred By: Jes Thompson Electronically Signed By: GABE RUBIO
--- NOTE | 2025-10-02 12:06 | PC.NURSE ---
Patint difficult stick, multipe RN`s and tech unabel to obtain second set of blood cultures, IMITATION MARBLE MECHANIC aware and gave okay to start IV abt prior to obtaining 2nd set of cultures. Family at bedside, aware of low bp and elevated WBC. Patient appears uncomfortable, IMITATION MARBLE MECHANIC aware
[2025-10-02 12:07] LABS: Alanine Aminotransferase 24 U/L (0-31); Albumin Level 3.7 g/dL (3.5-5.0); Alkaline Phosphatase 150 U/L (39-117); Anion Gap 21 (12-20); Aspartate Amino Transferase 51 U/L (5-31); Blood Urea Nitrogen 80 mg/dL (9-16); Calcium 13.1 mg/dL (8.4-10.2); Carbon Dioxide 20 mmol/L (22-29); Chloride 104 mmol/L (96-108); Creatinine Clr Calc Pharmacy 7.1; Estimated Glomerular Filt Rate 13; Magnesium 2.6 mg/dL (1.6-2.6); Potassium 6.2 mmol/L (3.3-5.1); Sodium 139 mmol/L (135-145); Total Protein 8.6 g/dL (6.5-8.0)
[2025-10-02 12:10] VITALS: BP 80/33; PULSE 79; RESP 18; O2SAT 92
[2025-10-02 12:11] VITALS: BP 71/32
--- NOTE | 2025-10-02 12:25 | PC.NURSE ---
BP remains low, ADMINISTRATIVE STAFF SUPERVISOR/ MD at bedside with family with email campaign specialist to fill out MOLST form.
[2025-10-02 12:31] LABS: Neutrophils Percent Manual 85 % (45-73)
[2025-10-02 12:32] LABS: Band Neutrophils Percent 11 % (3-5); Eosinophils Absolute Manual 0.5 X10*3/uL (0.0-0.4); Eosinophils Percent Manual 1 % (0-4); Lymphocytes Absolute Manual 1.0 X10*3/uL (1.2-4.9); Lymphocytes Percent Manual 2 % (20-40); Monocytes Absolute Manual 0.5 X10*3/uL (0.1-1.2); Monocytes Percent Manual 1 % (2-11); Neutrophils Absolute Manual 45.9 X10*3/uL (2.0-8.3); RBC Morphology NOTED
[2025-10-02 12:35] LABS: Burr Cells 3+ (>5) /OIF; Toxic Granulation PRESENT
--- NOTE | 2025-10-02 12:35 | PC.NURSE ---
After discussion with family, patient now HAY STACKER.
[2025-10-02 12:36] LABS: Toxic Vacuolation PRESENT
[2025-10-02 13:00] VITALS: RESP 10
[2025-10-02 13:39] LABS: Reflex Lactate? Lactic Acid Added
--- NOTE | 2025-10-02 14:30 | P.HPHOSP_ITS ---
History of Present Illness Date of Service: 10/02/25 Chief Complaint: Failure to thrive 75-year-old Peruvian-speaking female with a background history of HTN, HLD, hypothyroidism, CKD stage IIIA, Alzheimer's disease, brought in by family with lack of p.o. intake, altered mental status. Unfortunately at the time of evaluation, the patient is nonverbal. Collateral history has been obtained from family members and ED provider note. Patient has been diagnosed with vulvar carcinoma, not undergoing chemotherapy treatment, no plans for surgical or radiotherapy. Unfortunately, the patient has been progressively declining; poor p.o. intake, change in mental status, worsening pain around the vagina. Family brought the patient in for evaluation in the emergency room. On arrival, she was profoundly hypotensive (SBP 70s-80s), afebrile, and ill- appearing, with BMI 14.6. Exam notable for left labial wound with purulent drainage and foul odor. Labs revealed marked leukocytosis (WBC 47.8), severe acute kidney injury (Cr 3.54, baseline 0.85), hyperkalemia (K 6.2), hypercalcemia (Ca 13.1), lactic acidosis (lactate 2.5), and thrombocytosis. EKG showed new RBBB, LAFB, and peaked T waves. Initial management included IV fluids, vancomycin, and ceftriaxone. Sepsis alert was called. Family, with interpreter deaf, declined invasive interventions (pressors, procedures) but agreed to antibiotics and fluids. After further discussion with family and attending, code status was changed to comfort measures only (DUMP ATTENDANT) due to poor prognosis from advanced malignancy and refractory shock. Antibiotics and further imaging were discontinued, and the patient was admitted for comfort care. Review of Systems 2 Review of Systems: Yes Unobtainable due to mental condition and Unobtainable due to mental status PMFSH Social History Housing: House Patient Tobacco Use Status: Never used Tobacco e-Cigarette/Vaping Use: Never Used Second Hand Smoke Exposure: No Advance Directives: No Advance Directives Information Provided: No service: No Current occupational status: retired Current occupational exposures/hazards: No Cognitive needs: No Hearing needs: No Vision needs: Yes Meds Allergies Allergy/AdvReac Type Severity Reaction Status Date / Time Penicillins Allergy Severe ANGIOEDEMA Verified 10/02/25 11:22 Active Medications: Current Medications Acetaminophen (Acetaminophen 325 Mg Tablet) 650 mg PO Q6H PRN PRN Reason: Pain, Mild 1-3,fever,headache Calcium Carbonate (Calcium Carbonate 750 Mg Tab.Chew) 750 mg PO Q4H PRN PRN Reason: Heartburn Docusate Sodium (Docusate Sodium 100 Mg Capsule) 100 mg PO BEDTIME JOVON Haloperidol Lactate (Haloperidol Lactate 5 Mg/Ml Vial) 0.5 mg IVPUSH Q4H PRN PRN Reason: Delirium Ibuprofen (Ibuprofen 400 Mg Tablet) 400 mg PO Q6H PRN PRN Reason: Fever >/= 100, Pain, mild 1-3 Lorazepam (Lorazepam 1 Mg Tablet) 1 mg PO Q4H PRN PRN Reason: Myoclonic twitching/anxiety Magnesium Hydroxide (Milk Of Magnesia 30 Ml Oral.Susp) 30 ml PO DAILY PRN PRN Reason: Constipation Melatonin (Melatonin 3 Mg Tablet) 6 mg PO BEDTIME PRN PRN Reason: Insomnia Morphine Sulfate (Morphine Sulfate 4 Mg/Ml Cartridge) 2 mg IVPUSH Q1H PRN PRN Reason: Pain, Severe (7-10)/ RR>/=24 Last Admin: 10/02/25 13:00 Dose: 2 mg Morphine Sulfate (Morphine Sulfate Oral Ani 10 Mg/5 Ml Solution) 10 mg PO Q4H PRN PRN Reason: Pain, Moderate(Pain Scale 4-6) Ondansetron HCl (Ondansetron Hcl 4 Mg/2 Ml Vial) 4 mg IVPUSH Q8H PRN PRN Reason: Nausea and Vomiting Last Admin: 10/02/25 13:00 Dose: 4 mg Ondansetron HCl (Ondansetron Odt 4 Mg Tab.Rapdis) 4 mg TRANSLINGU Q8H PRN PRN Reason: Nausea and Vomiting Oxycodone HCl (Oxycodone Hcl Immed Release 5 Mg Tablet) 5 mg PO Q4H PRN PRN Reason: Pain, Moderate(Pain Scale 4-6) Scopolamine (Scopolamine 1.5 Mg Patch.Td.3) 1.5 mg TRANSDERMA Q72H JOVON Last Admin: 10/02/25 13:03 Dose: 1.5 mg Sodium Chloride (0.9 % Sodium Chloride Flush 3 Ml Syringe) 3 ml IVFLUSH QSHIFT REPLACED BY [facility] Physical Exam 2 Vital Signs and Narrative: Vital Signs: Last Vital Signs Temp 97 F 10/02/25 11:40 Pulse 79 10/02/25 12:10 Resp 10 L 10/02/25 13:00 BP 71/32 L 10/02/25 12:11 Pulse Ox 92 10/02/25 12:10 O2 Del Method Room Air 10/02/25 12:10 BMI result Body Mass Index 14.6 General: A&O x0, nonverbal; appears comfortable, ill-appearing Cardiac: S1, S2 auscultated with no S3/4, no MRG. Well perfused. Respiratory: Normal breath sounds auscultated without wheezing, rales. Normal rate. No respiratory distress GI/ : No abdominal pain on palpation, no masses or distentions. MSK: Generalized cachexia, frail Pelvic: Obtained from ED H&P: ?Left labial wound with active purulent drainage and foul odor. Neurological: Normal neurological examination on overview, without obvious CN II-XII abnormalities. Results Labs 10/02/25 11:34 10/02/25 11:34 Labs: Laboratory Results - last 24 hr 10/02/25 11:34 MCV 87.4 MCH 27.2 MCHC 31.2 RDW 15.0 Plt Count 579 H D MPV 9.4 Immature Gran % (Auto) Cancelled Neut % (Auto) Cancelled Lymph % (Auto) Cancelled [place] % (Auto) Cancelled Eos % (Auto) Cancelled Baso % (Auto) Cancelled Lymph # (Auto) Cancelled [place] # (Auto) Cancelled Eos # (Auto) Cancelled Baso # (Auto) Cancelled Abs Immat Gran (auto) Cancelled Absolute Neuts (auto) Cancelled Absolute Nucleated RBC 0.000 Nucleated RBC % (auto) 0.0 Neutrophils % (Manual) 85 H Band Neutrophils % 11 H Lymphocytes % (Manual) 2 L Monocytes % (Manual) 1 L Eosinophils % (Manual) 1 Abs Neuts (Manual) 45.9 H Lymphocytes # (Manual) 1.0 L Monocytes # (Manual) 0.5 Eosinophils # (Manual) 0.5 H Toxic Granulation PRESENT Toxic Vacuolation PRESENT Platelet Estimate INCREASED Plt Morphology Comment NORMAL RBC Morphology NOTED Jose Cells 3+ (>5) Anion Gap 21 H Estim Creat Clear Calc 7.1 Estimated GFR 13 Random Glucose 105 Lactic Acid 2.5 H* Calcium 13.1 H* D Magnesium 2.6 Total Bilirubin 0.5 AST 51 H ALT 24 Alkaline Phosphatase 150 H Total Protein 8.6 H Albumin 3.7 Assessment and Plan (1) Heart failure, unspecified: Qualifiers: Heart failure type: unspecified Heart failure chronicity: chronic Q ualified Code(s): I50.9 - Heart failure, unspecified Status: Acute (2) Hypertension: Qualifiers: Hypertension type: primary hypertension Qualified Code(s): I10 - Essential (primary) hypertension Status: Acute (3) Chronic kidney disease, stage 3a: Status: Acute (4) Vulvar malignant neoplasm: Status: Acute (5) Mild anemia: Status: Acute (6) Sepsis: Qualifiers: Sepsis acute organ dysfunction status: with acute organ dysfunction S epsis type: sepsis due to unspecified organism Severe sepsis acute organ dysfunction type: unspecified Severe sepsis shock status: unspecified Q ualified Code(s): A41.9 - Sepsis, unspecified organism; R65.20 - Severe sepsis without septic shock Status: Acute (7) Alzheimers disease: Status: Acute Plan 75-year-old female with advanced vulvar cancer (not on active therapy), CKD stage 3, Alzheimer?s dementia, hypertension, hyperlipidemia, and hypothyroidism, presenting with acute encephalopathy, hypotension, and evidence of severe sepsis secondary to a necrotic, purulent vulvar wound. Exam and labs notable for profound leukocytosis, acute renal failure, hyperkalemia, hypercalcemia, lactic acidosis, and new EKG changes. Family elected for comfort measures only after discussion of poor prognosis and refractory shock. Comfort Measures Only Goals of Care: The goal is to provide maximal comfort and preserved dignity, allowing for a natural dying process. Life prolonging treatments are not being pursued due to multi organ dysfunction with terminal diagnosis, poor prognosis, overwhelming disease burden. Advanced directives: Patient's advanced directive is on file and reviewed. The patient surrogate, is aware and agrees with the plan for DUMP ATTENDANT. Interventions: All interventions will be focused on symptom management including pain, anxiety, dyspnea, nausea/vomiting. Resuscitation status: DUMP ATTENDANT orders are in place Quality Stroke Does the patient have a stroke diagnosis?: No VTE Prior VTE?: No VTE Risk Level:: Medical - moderate - high VTE Device Contraindication: Treatment Not Indicated VTE Drug Contraindication: Treatment Not Indicated
[2025-10-02] MEDS: 0.9 % Sodium Chloride Flush 3 ML SYRINGE IVFLUSH (15:38)
--- NOTE | 2025-10-03 11:25 | MHC.CM.PN ---
IMM 10/03/25 DX CA Sepsis Comfort care A referral for a Hospice consult has been sent to [facility]. Patient with recent DX of CA BIBA to [facility] The patient was ambulatory 2 weeks ago. No DME in place. NO services in place. Dtr assists with all functional mobility now. Medicare + Medicaid are in place. Family requested hospice in a facility. They prefer she stay here at [facility]. Referrals to [place] facilities have been made at the family's request.
--- NOTE | 2025-10-03 12:20 | HO.WOUND ---
Wound Consult: Initial 75yr old?female admitted to [facility] on 10/02/25 - See progress notes and H&P for detailed history.? Patient recent transition to NAIL CUTTER status however concern for labial wound therefore wound consult placed.? Several family members at bedside providing love and caring environment for patient - agreeable to cleaning and repositioning of patient. Patient was not interactive with her environment at this time. Patient has large neoplasm to left labia with malodorous creamy purulent drainage, this is painful to touch for patient as she was grimacing with pain. Gentle cleansing provided and covered with durafiber AG and ABD pad, no adhesive needed as patient is not moving independently. The Durafiber will aid in odor control and moisture management. All Turns and repositions are initiated by staff for comfort and to maintain dignity. Bilateral heels and sacral area were assessed for purple pigmentation changes not pressure related - patient labs reveal high platelets and is noted to be end of life with skin changes. All care for the patient should focus on comfort and dignity. Sacral area and bilateral heels were treated with foam dressings and off loading pressure. Recommendations: 1. Turn and Reposition every 2 hours and as needed for patient comfort.? Use pillows or wedges to support off loading positions. 2. Off Load all bony prominences with use of pillows and heel boots if needed.? Apply foams where needed. ? 3. Monitor for incontinence and moisture control, use barrier creams when needed for treatment. Labia - Gentle cleaning with PH balanced wipes, cover with durafiber AG and ABD pad. Change every 3 days and PRN. Bilateral Heels and Sacrum - Off Load Pressure with Q2 hr turns and use of pillows - Routine cleansing.? Apply skin prep allow to dry.? Cover with foam dressing to aid in off loading and protection from friction. Change every 3 days and PRN. All topical care should focus on comfort and dignity. Re-consult wound care Nurse for wound deterioration or wound changes.
--- NOTE | 2025-10-03 12:59 | MHC.CM.PN ---
Patient accepted by [facility] for [facility] hospice. No HCP is on file. Medicaid is buy in. No payer source for INPT hospice.
--- NOTE | 2025-10-03 14:44 | P.DS_ITS ---
DS: Providers Provider Date of Service: 10/03/25 Date of admission: 10/02/25 13:17 Date of discharge: 10/03/25 Primary care physician: Andrew Weiner MD Consults: 10/02/25 13:57 Consult to Case Management Routine Comment: Consult to Dry Chain Puller Stat Comment: Consult to Hospice Routine Comment: 10/02/25 16:00 Consult to Wound Care Routine Consulting Provider: [facility] Wound Care Management Reason for consultation: ulceration to labia recommendation for comfort DS: Diagnosis Discharge Diagnosis (1) Heart failure, unspecified: Status: Acute (2) Hypertension: Status: Acute (3) Chronic kidney disease, stage 3a: Status: Acute (4) Vulvar malignant neoplasm: Status: Acute (5) Mild anemia: Status: Acute (6) Sepsis: Status: Acute (7) Alzheimers disease: Status: Acute DS: Summary Hospital Course Hospital Course: From admission HPI Date of Service: 10/02/25 Chief Complaint: Failure to thrive 75-year-old North Korean-speaking female with a background history of HTN, HLD, hypothyroidism, CKD stage IIIA, Alzheimer's disease, brought in by family with lack of p.o. intake, altered mental status. Unfortunately at the time of evaluation, the patient is nonverbal. Collateral history has been obtained from family members and ED provider note. Patient has been diagnosed with vulvar carcinoma, not undergoing chemotherapy treatment, no plans for surgical or radiotherapy. Unfortunately, the patient has been progressively declining; poor p.o. intake, change in mental status, worsening pain around the vagina. Family brought the patient in for evaluation in the emergency room. On arrival, she was profoundly hypotensive (SBP 70s-80s), afebrile, and ill-appearing, with BMI 14.6. Exam notable for left labial wound with purulent drainage and foul odor. Labs revealed marked leukocytosis (WBC 47.8), severe acute kidney injury (Cr 3.54, baseline 0.85), hyperkalemia (K 6.2), hypercalcemia (Ca 13.1), lactic acidosis (lactate 2.5), and thrombocytosis. EKG showed new RBBB, LAFB, and peaked T waves. Initial management included IV fluids, vancomycin, and ceftriaxone. Sepsis alert was called. Family, with translator/interpreter, declined invasive interventions (pressors, procedures) but agreed to antibiotics and fluids. After further discussion with family and attending, code status was changed to comfort measures only ([employer]) due to poor prognosis from advanced malignancy and refractory shock. Antibiotics and further imaging were discontinued, and the patient was admitted for comfort care. Hospital course Pt was admitted to the hospital under comfort measures only after pt presented to the hospital with septic shock in the setting of vulvar cancer and Alzheimer's dementia. Pt was seen and evaluated by hospice and will be discharged with a readmission under [facility] hospice care. Time Attestation Discharge Coordination Time (in mins): 20 Quality: Safe Use of Opioids Does Pt have an Active Cancer Diagnosis on the Problem List?: Yes Opioid Measure Date for [facility] Report: 09/03/25 Opioid Measure Time for [facility] Report: 15:20 Quality: Stroke Does the patient have a stroke diagnosis?: No Physical Exam Exam: Exam: General: Resting comfortably in bed, chronically ill-appearing, in no acute distress Resp: CTA bilaterally. Breathing unlabored CVS: S1, S2, RRR Psych: Obtunded, actively dying Vital Signs: Vital Signs: Last Vital Signs Temp 97 F 10/02/25 11:40 Pulse 79 10/02/25 12:10 Resp 10 L 10/02/25 13:00 BP 71/32 L 10/02/25 12:11 Pulse Ox 92 10/02/25 12:10 O2 Del Method Room Air 10/02/25 12:10 BMI result Body Mass Index 14.6 DS: Data Data Completed and Pending Labs on day of discharge: Laboratory Results - last 24 hr 10/02/25 11:34 Smear Path Review SEE NOTE Preliminary micro results at discharge 10/02/25 12:20 Blood Culture - Preliminary Blood - Venous No growth after 24 hours. 10/02/25 11:34 Blood Culture - Preliminary Blood - Venous No growth after 24 hours. 10/02/25 11:24 Routine Culture - Preliminary Labia Culture in progress. Discharge Plan Discharge Anticipated Discharge Date/Time: 10/03/25 14:39 Patient Disposition: Hospice - Medical Facility Discharge Diagnosis: Advanced vulvar cancer Referrals: Andrew Weiner MD [Primary Care Provider, Internal Medicine] - 1 Week Discharge Medications: Discontinued diltiazem HCl 30 mg tablet 30 mg PO DAILY 90 Days Qty: 90 3RF ferrous sulfate 325 mg (65 mg iron) tablet 325 mg PO DAILY 90 Days Qty: 90 3RF levothyroxine [Levo-T] 50 mcg tablet 50 mcg PO DAILY 90 Days Qty: 90 4RF metformin 500 mg tablet 500 mg PO DAILY 90 Days Qty: 90 3RF atorvastatin 40 mg tablet 40 mg PO DAILY 90 Days Qty: 90 3RF donepezil 10 mg tablet 10 mg PO DAILY 90 Days Qty: 90 2RF (DME) Ultra-Light Rollator Misc See Rx Instructions .Route Qty: 1 0RF Rx Instructions: As directed, 999 days losartan 25 mg tablet 12.5 mg PO DAILY 90 Days Qty: 45 4RF Discharge Orders: Discharge Order (Routine); Ordered 10/03/25 Ordered By: Kike Cedeño Activity on Discharge: As tolerated Stand Alone Forms: Patient Portal Discharge page Print Language: [place] Care Plan Goals: Pt will be readmitted to the hospital under [facility] hospice. Health Concerns: Pt will be readmitted to the hospital under [facility] hospice. Plan of Treatment: Pt will be readmitted to the hospital under [facility] hospice. Assessment: Pt will be readmitted to the hospital under [facility] hospice.
--- NOTE | 2025-10-03 15:26 | MHC.CM.PN ---
pt is gip
== END 2025-10-03 16:33 | disposition hospice, inpatient (51) | DRG 871 ==
LOC: HO.ED 13:11 → HO.EDOVER 13:18 → HO.S3 13:19
PROVIDERS: Nurse Practitioner; Physician Assistant; Admitting Provider Hospitalist; Emergency Provider Emergency Medicine Emergency Medical Services; PCP Family Medicine; Visit Provider Student in an Organized Health Care Education/Training Program
DX: A41.9 Sepsis, unspecified organism (principal); R65.21 Severe sepsis with septic shock; I96 Gangrene, not elsewhere classified; N17.9 Acute kidney failure, unspecified; I45.2 Bifascicular block; E87.5 Hyperkalemia; E83.52 Hypercalcemia; Z51.5 Encounter for palliative care; G89.3 Neoplasm related pain (acute) (chronic); I12.9 Hypertensive chronic kidney disease with stage 1 through stage 4 chronic kidney disease, or unspecified chronic kidney disease; C51.9 Malignant neoplasm of vulva, unspecified; N18.31 Chronic kidney disease, stage 3a; G30.9 Alzheimer's disease, unspecified; F02.80 Dementia in other diseases classified elsewhere, unspecified severity, without behavioral disturbance, psychotic disturbance, mood disturbance, and anxiety
CPT/HCPCS: 36415; 71045; 80053; 83605; 83735; 85007; 85025; 85027; 87040; 87070; 87073; 87077; 87147; 87186; 87205; 93005; 99285; J0696; J2270; J2405; J3374

== ENCOUNTER → 2025-10-02 11:19 | Outpatient (BNV) | payer MEDICARE, MEDICAID, SELFPAY | PROVIDERS: Admitting Provider Hospitalist; Emergency Provider Emergency Medicine Emergency Medical Services; PCP Family Medicine; Visit Provider Radiology Diagnostic Radiology | DX: R06.02 Shortness of breath (principal) | CPT/HCPCS: 71045 ==

== ENCOUNTER → 2025-10-02 12:01 | Outpatient (BNV) | payer MEDICARE, MEDICAID, SELFPAY | PROVIDERS: Admitting Provider Hospitalist; Emergency Provider Emergency Medicine Emergency Medical Services; PCP Family Medicine; Visit Provider Internal Medicine | DX: I45.2 Bifascicular block (principal) | CPT/HCPCS: 93010 ==

== ENCOUNTER → 2025-10-02 13:17 | Outpatient (BNV) | payer MEDICARE, MEDICAID, SELFPAY | PROVIDERS: Admitting Provider Hospitalist; Emergency Provider Emergency Medicine Emergency Medical Services; PCP Family Medicine; Visit Provider Hospitalist | DX: A41.9 Sepsis, unspecified organism (principal); R65.20 Severe sepsis without septic shock; C51.9 Malignant neoplasm of vulva, unspecified; I50.9 Heart failure, unspecified; N18.31 Chronic kidney disease, stage 3a; G30.9 Alzheimer's disease, unspecified; F02.80 Dementia in other diseases classified elsewhere, unspecified severity, without behavioral disturbance, psychotic disturbance, mood disturbance, and anxiety; I10 Essential (primary) hypertension; Z51.5 Encounter for palliative care | CPT/HCPCS: 99238 ==

== ENCOUNTER 2025-10-03 16:45 | Inpatient (IN) | payer OTHER, SELFPAY ==
--- NOTE | 2025-10-03 15:34 | PM.IMHP ---
History of Present Illness Date of Service: 10/03/25 Attending physician on admission: Crispin Meyer Chief Complaint: Comfort Measures Only Pt is a 75-year-old Hebrew-speaking female with a PMH significant for Alzheimer's dementia, recent diagnosis of vulvar carcinoma not on chemotherapy, HTN, HLD, hypothyroidism, and CKD 3 who was originally brought to the ED due to lack p.o. intake at altered mental status. In the ED pt was found to be profoundly hypotensive with SBP in the 70s to 80s, BMI 14.6, and with left labial wound with foul-smelling and purulent drainage. Pt had marked leukocytosis of 47.8, ELO of 3.54 (baseline 0.85), hyperkalemia of 6.2, hypercalcemia of 13.1, and lactic acidosis of 2.5. After prolonged discussion with family and given patient's poor prognosis, the family elected to make pt comfort measures only, and pt will be admitted to the hospital under [facility] hospice. Review of Systems Review of Systems: Yes Unobtainable due to mental status PMFSH Social History (Reviewed 11/05/24 @ 11:17 by Maria Luisa Macario [facility]) Housing: House Comment: [employer] Patient Tobacco Use Status: Never used Tobacco e-Cigarette/Vaping Use: Never Used Second Hand Smoke Exposure: No Advance Directives: No Advance Directives Information Provided: No service: No Current occupational status: retired Current occupational exposures/hazards: No Cognitive needs: No Hearing needs: No Vision needs: Yes Meds Allergies Allergy/AdvReac Type Severity Reaction Status Date / Time Penicillins Allergy Severe ANGIOEDEMA Verified 10/02/25 11:22 Active Medications: Current Medications Diazepam (Diazepam 10 Mg/2 Ml Cartridge) 2.5 mg IVPUSH Q4H PRN PRN Reason: Anxiety/restlessness Morphine Sulfate (Morphine Sulfate 4 Mg/Ml Cartridge) 2 mg IVPUSH Q1H PRN PRN Reason: Pain, Severe (7-10)/ RR>/=24 Ondansetron HCl (Ondansetron Odt 4 Mg Tab.Rapdis) 4 mg TRANSLINGU Q8H PRN PRN Reason: Nausea and Vomiting Scopolamine (Scopolamine 1.5 Mg Patch.Td.3) 1.5 mg TRANSDERMA Q72H JOVON Physical Exam Vital Signs and Narrative: General: Resting comfortably in bed, chronically ill-appearing, in no acute distress Resp: CTA bilaterally. Breathing unlabored CVS: S1, S2, RRR Psych: Obtunded, actively dying Assessment and Plan (1) Comfort measures only status: Status: Acute Plan Pt is a 75-year-old Hebrew-speaking female with a PMH significant for Alzheimer's dementia, recent diagnosis of vulvar carcinoma not on chemotherapy, HTN, HLD, hypothyroidism, and CKD 3 who was originally brought to the ED due to lack p.o. intake at altered mental status. In the ED pt was found to be profoundly hypotensive with SBP in the 70s to 80s, BMI 14.6, and with left labial wound with foul-smelling and purulent drainage. Pt had marked leukocytosis of 47.8, ELO of 3.54 (baseline 0.85), hyperkalemia of 6.2, hypercalcemia of 13.1, and lactic acidosis of 2.5. After prolonged discussion with family and given patient's poor prognosis, the family elected to make pt comfort measures only, and pt will be admitted to the hospital under [facility] hospice and made comfortable with morphine, Valium, and scopolamine. Quality Stroke Does the patient have a stroke diagnosis?: No VTE Prior VTE?: No VTE Risk Level:: Medical - moderate - high VTE Device Contraindication: Treatment Not Indicated VTE Drug Contraindication: Treatment Not Indicated
[2025-10-03 17:24] VITALS: BMI 14.7
--- OUTSIDE RECORDS SUMMARY | 2025-10-03 18:50 | XMS_ITS | Clinical Summary ---
Author Organization [employer] Address [address] [place] [address] Care Team Providers Care Library Information Technician Name Role Phone Unavailable Primary Care Provider [...] complete this topic Insurance MEDICARE [place] [phone]
--- OUTSIDE RECORDS SUMMARY | 2025-10-03 18:50 | XMS_ITS | Clinical Summary ---
Author Organization Formerly [facility] Address [address] [place] [id number] Care Team Providers Care Regional Account Director Name Role Phone Andrew Weiner MD Primary Care Provider Allergies Active Allergy Reactions Criticality Noted Date Comments Penicillins Angioedema High 08/11/2025 Active Problems Problem Noted Date Diagnosed Date Labial infection 08/11/2025 Encounters Date Type Department Care Team Description 08/11/2025 6:10 AM EDT Ancillary Procedure [facility] Radiology [address] [place] [address] Provider, File Room 08/11/2025 2:37 AM EDT - 08/11/2025 10:24 AM EDT [facility] Emergency Department [address] [place] [phone] David Martin MD Harris, Alexandra L, Vulvar [...] FILMS Final Resu lt Performing Organization Address City/[facility]/ZIP Co de Phone Number BUZZ [phone] * ABO Confirmation (08/11/2025 3:45 AM EDT) ABO/Rh A POSITIVE 08/11/2025 5:18 AM EDT [facility] Blood Blood specimen / Unknown 08/11/2025 3:45 AM EDT 08/11/2025 3:57 AM EDT Rani Duque DO BLOOD BANK TEST ORDERABLES Final Result Performing Organization Address [facility] [place] [address], [place] [address] * (ABNORMAL) Complete Blood Count, with Differential (08/11/2025 3:42 AM EDT) White Blood Cell Count 9.9 4.0 - 11.0 Thou/uL 08/11/2025 3:51 AM EDT [facility] Platelet Count 241 150 - 450 Thou/uL 08/11/2025 3:51 AM EDT [facility] Hemoglobin 8.4(L) 11.7 - 15.7 g/dL 08/11/2025 3:51 AM EDT [facility] Hematocrit 26.6(L) 35.0 - 47.0 % 08/11/2025 3:51 AM EDT [facility] Red Blood Cell Count 3.00(L) 4.00 - 5.40 Mil/uL 08/11/2025 3:51 AM EDT [facility] MCV 89 80 - 100 fL 08/11/2025 3:51 AM EDT [facility] MCH 28.0 27.0 - 31.0 pg [facility] 31.6 30.0 - 36.0 g/dL 08/11/2025 3:51 AM EDT [facility] RDW 13.2 11.5 - 14.5 % 08/11/2025 3:51 AM EDT [facility] MPV 9.4 7.5 - 12.5 fL 08/11/2025 3:51 AM EDT [facility] Neutrophils Auto 75.5 % 08/11/20 3:51 AM EDT [facility] Immature Granulocytes 0.3 % 08/11/2025 3:51 AM EDT [facility] Lymphocytes Auto 14.9 % 08/11/20 3:51 AM EDT [facility] Monocytes Auto 5.6 % 08/11/2025 3:51 AM EDT [facility] Eosinophils Auto 3.4 % 08/11/20 3:51 AM EDT [facility] Basophils Auto 0.3 % 08/11/2025 3:51 AM EDT [facility] Abs Neutrophils Auto 7.46 2.00 - 7.50 Thou/uL 08/11/2025 3:51 AM EDT [facility] Abs Immature Granulocytes 0.03 0.00 - 0.10 Thou/uL 08/11/2025 3:51 AM EDT [facility] Abs Lymphocytes Auto 1.47(L) 1.50 - 4.50 Thou/uL 08/11/2025 3:51 AM EDT [facility] Abs Monocytes Auto 0.55 0.20 - 1.50 Thou/uL 08/11/2025 3:51 AM EDT [facility] Abs Eosinophils Auto 0.34 0.00 - 0.70 Thou/uL 08/11/2025 3:51 AM EDT [facility] Abs Basophils Auto 0.03 0.00 - 0.20 Thou/uL 08/11/2025 3:51 AM T [facility] Blood Blood specimen / Unknown 08/11/2025 3:42 AM EDT 08/11/2025 3:49 AM EDT us Rani Duque DO LAB BLOOD ORDERABLES Final Result [address] [address], [address] [address] * Type and Screen (08/11/2025 3:42 AM EDT) ABO/Rh A POSITIVE 08/11/2025 4:56 AM EDT [facility] Antibody Screen NEGATIVE 4:56 AM EDT [facility] Specimen Expiration 08/14/2025 08/11/2025 4:56 AM EDT [facility] Blood Blood specimen / Unknown 08/11/2025 3:42 AM EDT 08/11/2025 3:48 AM EDT us Rani Duque DO BLOOD BANK TEST ORDERABLES Final Result Performing Organization Address City/[facility]/ZIP Co de Phone Number [address] [address], [address] [address] * Lactic Acid, Plasma Now and repeat in 2h (08/11/2025 3:42 AM EDT) Lactic Acid 0.8 0.5 - 1.9 mmol/L 08/11/2025 4:11 AM EDT [facility] Blood Blood specimen / Unknown 08/11/2025 3:42 AM EDT 08/11/2025 3:48 AM EDT us Rani Duque DO LAB BLOOD ORDERABLES Final Result [address] [address], [address] [address] * Basic Metabolic Panel (08/11/2025 3:42 AM EDT) Glucose 88 65 - 99 mg/dL 08/11/2025 4:16 AM EDT [facility] Comment:Fasting: <100 mg/dL, Non-Fasting: <200 mg/dL (ADA 2005) Blood Urea Nitrogen (BUN) 20 8 - 21 mg/dL 08/11/2025 4:16 AM EDT [facility] Creatinine 0.87 0.40 - 1.10 mg/dL 08/11/2025 4:16 AM EDT [facility] eGFR 69 >59 08/11/2025 4:16 AM EDT [facility] Comment:CKD-EPI (2020) in mL /min/1.73 sq meters. Sodium 139 136 - 145 mmol/L 08/11/2025 4:16 AM EDT [facility] Potassium 4.2 3.4 - 5.3 mmol/L 08/11/2025 4:16 AM EDT [facility] Chloride 105 98 - 107 mmol/L 08/11/2025 4:16 AM EDT [facility] CO2 23 22 - 33 mmol/L 08/11/2025 4:16 AM EDT [facility] Anion Gap 11 7 - 17 08/11/2025 4:16 AM EDT [facility] Calcium 8.8 8.7 - 10.5 mg/dL 08/11/2025 4:16 AM EDT [facility] BUN/Creatinine Ratio 23 10.0 - 25.0 Ratio 08/11/2025 4:16 AM EDT [facility] Blood Blood specimen / Unknown 08/11/2025 3:42 AM EDT 08/11/2025 3:49 AM EDT Rani Duque DO LAB BLOOD ORDERABLES Final Result [address] [address], [address] [address] * CT Abdomen+pelvis w/o contrast (08/11/2025 3:14 [...] Months Insurance MEDICARE PART A & B [facility] Care Teams Regional Account Director Relationship Specialty Start Date End Date Andrew Weiner MD [address] [place] [address] [place] [address] PCP - General Family Medicine 08/11/25
--- NOTE | 2025-10-04 08:25 | PHA.MEDREC ---
Pharmacy Consult ? Medication Reconciliation Per Dr. 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
--- NOTE | 2025-10-04 11:34 | PC.NURSE ---
[facility] in [place].
--- NOTE | 2025-10-04 11:45 | P.DN_ITS ---
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 intake at altered mental status. In the ED pt was found to be profoundly hypotensive with SBP in the 70s to 80s, BMI 14.6, and with left labial wound with foul-smelling and purulent drainage. Pt had marked leukocytosis of 47.8, ELO of 3.54 (baseline 0.85), hyperkalemia of 6.2, hypercalcemia of 13.1, and lactic acidosis of 2.5. After prolonged discussion with family and given patient's poor prognosis, the family elected to make pt comfort measures only, and pt will be admitted to the hospital under [facility] hospice. Hospital course Pt initially presented to the ED obtunded and in septic shock and was briefly considered for ICU admission. 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 Pt was made comfortable with morphine, Valium, and scopolamine. The pt on 10/04/2025 at 10:55. Pt had no detectable pulse, heartbeat, or respiratory effort; pupils were dilated and nonreactive. Family was at bedside. Additional Data Attending physician: NAHOMY Martines
== END 2025-10-04 10:55 | disposition expired | DRG 951 ==
PROVIDERS: Admitting Provider Student in an Organized Health Care Education/Training Program; Visit Provider Student in an Organized Health Care Education/Training Program
DX: Z51.5 Encounter for palliative care (principal); A41.9 Sepsis, unspecified organism; R65.21 Severe sepsis with septic shock; N17.9 Acute kidney failure, unspecified; C51.9 Malignant neoplasm of vulva, unspecified; G30.9 Alzheimer's disease, unspecified; F02.80 Dementia in other diseases classified elsewhere, unspecified severity, without behavioral disturbance, psychotic disturbance, mood disturbance, and anxiety; I12.9 Hypertensive chronic kidney disease with stage 1 through stage 4 chronic kidney disease, or unspecified chronic kidney disease; N18.30 Chronic kidney disease, stage 3 unspecified; E78.5 Hyperlipidemia, unspecified; E03.9 Hypothyroidism, unspecified
CPT/HCPCS: J2270

== ENCOUNTER → 2025-10-03 16:45 | Outpatient (BNV) | payer OTHER, SELFPAY | PROVIDERS: Admitting Provider Student in an Organized Health Care Education/Training Program; Visit Provider Student in an Organized Health Care Education/Training Program | DX: C51.9 Malignant neoplasm of vulva, unspecified (principal); R62.7 Adult failure to thrive; Z51.5 Encounter for palliative care | CPT/HCPCS: 99222; 99238 ==